=== PATIENT | female | born 1960 | race American Indian/Alaskan Native ===

== ENCOUNTER 2016-05-26 10:08 | Outpatient (CLI) | payer MEDICARE, OTHER ==
--- NOTE | 2016-05-26 11:27 | Mammography Report ---
Bilateral mammogram: No previous is available. CT study utilized. Findings: Predominance of adipose tissue bilaterally. Focal asymmetry upper inner left breast. No microcalcifications. Benign calcification. Benign axillary nodes. Impression: Focal asymmetry left breast. Comparison with previous studies is advised. If previous studies are not available spot mag and sonographic examination is recommended. BI-RADS CATEGORY: 0 = Needs additional imaging evaluation ACR BI-RADS MAMMOGRAPHIC CODES: 0 = Needs additional imaging evaluation; 1 = Negative; 2 = Benign; 3 = Probably benign; 4 = Suspicious; 5 = Malignant; 6 = Known biopsy-proven malignancy COMMENT: 1. Dense breast tissue, i.e., adenosis, fibrocystic changes, etc., may obscure an underlying neoplasm. 2. Approximately 10% of cancers are not detected with mammography. 3. A negative mammography report should not delay biopsy if a clinically suspicious mass is present. COMMENT: Patient follow-up letters are generated in [facility].
== END 2016-05-26 10:09 | disposition home or self-care (01) ==
LOC: MAMMO 10:08
PROVIDERS: ATTEND Internal Medicine
DX: Z12.31 Encounter for screening mammogram for malignant neoplasm of breast (principal)
CPT/HCPCS: 77067; G0202

== ENCOUNTER 2016-08-04 09:32 | Outpatient (CLI) | payer MEDICARE ==
--- NOTE | 2016-08-04 13:19 | Mammography Report ---
Spot compression compression and sonographic examination of circumscribed density left breast approximate 10:00 position: Findings: There is persistence of circumscribed density noted on spot magnification view in the margin appears circumscribed. No microcalcification. Sonographic examination there is no cystic or solid mass. Impression: Probably benign density. 6 month followup with mammogram and if necessary sonogram recommended. BI-RADS CATEGORY: 3 = Probably benign ACR BI-RADS MAMMOGRAPHIC CODES: 0 = Needs additional imaging evaluation; 1 = Negative; 2 = Benign; 3 = Probably benign; 4 = Suspicious; 5 = Malignant; 6 = Known biopsy-proven malignancy COMMENT: 1. Dense breast tissue, i.e., adenosis, fibrocystic changes, etc., may obscure an underlying neoplasm. 2. Approximately 10% of cancers are not detected with mammography. 3. A negative mammography report should not delay biopsy if a clinically suspicious mass is present. COMMENT: Patient follow-up letters are generated in [employer].
--- NOTE | 2016-08-05 12:12 | Vascular Lab Report ---
LOWER EXTREMITY ARTERIAL PHYSIOLOGIC STUDY: REASON FOR EXAM: Peripheral arterial disease. COMMENTS ON THE RIGHT: Ankle brachial index is 0.8. This value is decreased. Toe brachial index is not measured. Pulse volume recording at the level of the ankle is abnormal. Exercise testing was not done. COMMENTS ON THE LEFT: Ankle brachial index is 1.10. This value is normal. Toe brachial index is not measured. Pulse volume recording at the level of the ankle is normal. Exercise testing was not done. IMPRESSION: RIGHT: Mild peripheral vascular disease in the right lower extremity LEFT:No hemodynamically significant arterial disease.
--- NOTE | 2016-08-05 12:13 | Vascular Lab Report ---
LOWER EXTREMITY ARTERIAL DUPLEX: REASON FOR EXAM: Peripheral arterial disease. COMMENTS ON THE RIGHT: Biphasic waveforms are seen proximally. Triphasic waveforms are seen distally. No significant velocity gradients are identified. No focal significant plaque is identified. Findings are consistent with normal perfusion. Findings are consistent with the ability to heal distal wounds. COMMENTS ON THE LEFT: Biphasic waveforms are seen proximally. Triphasic waveforms are seen distally. No significant velocity gradients are identified. No focal significant plaque is identified. Findings are consistent with normal perfusion. Findings are consistent with the ability to heal distal wounds. IMPRESSION: RIGHT: Essentially normal arterial flow. LEFT:Essentially normal arterial flow.
--- NOTE | 2016-08-05 12:14 | Vascular Lab Report ---
UPPER EXTREMITY ARTERIAL DUPLEX: REASON FOR EXAM: Peripheral arterial disease. COMMENTS ON THE RIGHT: Triphasic waveforms are seen proximally. Triphasic waveforms are seen distally. No significant velocity gradients are identified. No significant plaque is identified. Findings are consistent with normal perfusion. COMMENTS ON THE LEFT: Triphasic waveforms are seen proximally. Triphasic waveforms are seen distally. No significant velocity gradients are identified. No significant plaque is identified. Findings are consistent with normal perfusion. IMPRESSION: RIGHT: Essentially normal arterial flow. LEFT:Essentially normal arterial flow.
== END 2016-08-04 09:33 | disposition home or self-care (01) ==
LOC: VAS 09:32
PROVIDERS: ATTEND Internal Medicine
DX: I73.9 Peripheral vascular disease, unspecified (principal); R92.2 Inconclusive mammogram
CPT/HCPCS: 76641; 93922; 93925; 93930; G0206

== ENCOUNTER 2019-02-19 11:41 | Emergency (ER) | payer MEDICARE ==
[2019-02-19] MEDS ORDERED: ASPIRIN 325 MG TAB PO ONE (11:59)
--- NOTE | 2019-02-19 12:53 | XRay Report ---
CHEST PA AND LATERAL VIEWS INDICATION: Chest Pain. COMPARISON: None. FINDINGS: Support devices: None. Heart: Within normal limits. Lungs/Pleura: No acute pulmonary or pleural findings. IMPRESSION: 1. No acute findings. Signer Name: Eligio Gonzalez MD Signed: 02/19/2019 12:49 PM Workstation Name: [id number]
[2019-02-19 13:36] LABS: Basophils # (Auto) 0.1 K/mm3 (0.0-0.1); Eosinophils # (Auto) 0.4 K/mm3 (0.0-0.4); Eosinophils % (Auto) 5.5 % (0.0-4.3); Hematocrit 41.4 % (30.3-42.9); Hemoglobin 13.7 gm/dl (10.1-14.3); Lymphocytes # (Auto) 2.3 K/mm3 (1.2-5.4); Lymphocytes % (Auto) 35.2 % (13.4-35.0); Mean Corpuscular HGB Conc 33 % (30-34); Mean Corpuscular Volume 90 fl (79-97); Monocytes # (Auto) 0.4 K/mm3 (0.0-0.8); Monocytes % (Auto) 5.5 % (0.0-7.3); Platelet Count 275 K/mm3 (140-440)
[2019-02-19 13:47] LABS: BUN/Creatinine Ratio 15; Blood Urea Nitrogen 9 mg/dL (7-17); Calcium 10.5 mg/dL (8.4-10.2); Hemolysis Index 11
[2019-02-19] MEDS ORDERED: methylPREDNISolone Sod Succinate 125 MG/2 ML INJ IM ONE (21:37)
[2019-02-19] MEDS ORDERED: IPRATROPIUM 0.02% NEBU 2.5 ML IH ONE (21:48)
[2019-02-19] MEDS ORDERED: ALBUTEROL 2.5 MG/3 ML NEBU IH ONE (21:48)
[2019-02-19] MEDS ORDERED: AZITHROMYCIN 250 MG TAB PO ONE (22:50)
[2019-02-20 00:38] VITALS: BP 181/80
--- NOTE | 2019-02-20 00:48 | Emergency Department Report ---
- General Chief Complaint: Dyspnea/Respdistress Stated Complaint: CHEST PAIN/SHAHRAM Time Seen by Provider: 02/19/19 22:12 Source: patient Mode of arrival: Ambulatory Limitations: No Limitations - History of Present Illness Initial Comments: Does not use home O2 MD Complaint: cough -: Gradual, days(s) (4) Severity: moderate Severity scale (0 -10): 4 Quality: aching (chest with coughing) Consistency: intermittent Improves With: other (Nebulizer reports was using her home nebulizer approximately every 1-2 hours at home) Worsens With: other (smoking cigarettes) Context: other (hx COPD feels like past COPD exacerbations) Associated Symptoms: cough (with green sputum no hemoptysis), chest pain (with coughing), shortness of breath, other (wheezing). denies: fever, chills, myalgias, diaphoresis, headache, rhinorrhea, nasal congestion, sore throat, stiff neck, abdominal pain, nausea, vomiting, diarrhea, dysuria, rash, confusion, right sweats, epistaxis, hoarseness, ear pain - Related Data Previous Rx's Medication Instructions Recorded Last Taken Type Ciprofloxacin HCl [Cipro] 500 mg PO BID #20 tablet 12/03/17 Unknown Rx Docusate Sodium [Colace] 100 mg PO BID PRN #20 capsule 12/03/17 Unknown Rx Ondansetron [Zofran Odt] 4 mg PO Q8HR PRN #20 tab.rapdis 12/03/17 Unknown Rx Tramadol HCl [Ultram] 50 mg PO Q6HR PRN #10 tablet 12/03/17 Unknown Rx metroNIDAZOLE [Flagyl] 500 mg PO Q12HR #20 tab 12/03/17 Unknown Rx Acetaminophen [Acetaminophen TAB] 500 mg PO Q6HR PRN #12 tablet 02/20/19 Unknown Rx Azithromycin [Zithromax Z-RACHEL] 250 mg PO DAILY #4 tablet 02/20/19 Unknown Rx Benzonatate [Tessalon Perles] 100 mg PO Q8HR PRN #12 capsule 02/20/19 Unknown Rx predniSONE [Deltasone] 50 mg PO QDAY #5 tab 02/20/19 Unknown Rx Allergies Allergy/AdvReac Type Severity Reaction Status Date / Time Penicillins Allergy Shortness Verified 02/19/19 19:48 of Breath ED Review of Systems ROS: Stated complaint: CHEST PAIN/SHAHRAM Other details as noted in HPI Other: GENERAL: No weight change, fatigue, fever, chills, or night sweats SKIN: No changes in skin or hair, no itching, no rashes, no jaundice HEAD: No trauma EYES: No blurriness, tearing, itching, acute visual loss, conjunctival discoloration, or scleral icterus EARS: No hearing loss, tinnitus, vertigo, or earache NOSE: No rhinorrhea, stuffiness, sneezing, itching, or epistaxis MOUTH: No bleeding gums, hoarseness, sore throat, or swelling CARDIAC: Chest pain. No new murmur,palpitations, dyspnea on exertion, orthopnea, PND, or edema RESPIRATORY: Shortness of breath, wheeze, cough, sputum production. Denies hemoptysis GI: No abdominal pain, nausea, vomiting, dysphagia, diarrhea, constipation, hematemesis, melena, hematochezia URINARY: No frequency, urgency, polyuria, dysuria, hematuria, or incontinence MUSCULOSKELETAL: No muscle weakness, joint stiffness, decrease in range of motion, redness, swelling NEUROLOGIC: No headache, syncope, loss of sensation, numbness, tingling, tremors, weakness, paralysis, seizures HEMATOLOGIC: No anemia, easy bruising, bleeding, petechiae, or purpura ENDOCRINE: No hot or cold intolerance, sweating, polyuria, polydipsia or, polyphagia no thyroid problems PSYCHIATRIC: No change in mood, no anxiety, no depression ED Past Medical Hx - Past Medical History Hx Diabetes: Yes Hx COPD: Yes Additional medical history: IBS, sleep apnea, hypothyroid. - Social History Smoking Status: Current Some Day Smoker Substance Use Type: None - Medications Home Medications: Home Medications Medication Instructions Recorded Confirmed Last Taken Type Ciprofloxacin HCl [Cipro] 500 mg PO BID #20 tablet 12/03/17 Unknown Rx Docusate Sodium [Colace] 100 mg PO BID PRN #20 capsule 12/03/17 Unknown Rx Ondansetron [Zofran Odt] 4 mg PO Q8HR PRN #20 tab.rapdis 12/03/17 Unknown Rx Tramadol HCl [Ultram] 50 mg PO Q6HR PRN #10 tablet 12/03/17 Unknown Rx metroNIDAZOLE [Flagyl] 500 mg PO Q12HR #20 tab 12/03/17 Unknown Rx Acetaminophen [Acetaminophen TAB] 500 mg PO Q6HR PRN #12 tablet 02/20/19 Unknown Rx Azithromycin [Zithromax Z-RACHEL] 250 mg PO DAILY #4 tablet 02/20/19 Unknown Rx Benzonatate [Tessalon Perles] 100 mg PO Q8HR PRN #12 capsule 02/20/19 Unknown Rx predniSONE [Deltasone] 50 mg PO QDAY #5 tab 02/20/19 Unknown Rx ED Physical Exam - General Limitations: No Limitations - Other Other exam information: GENERAL: Patient in no acute distress HEAD: Normocephalic, atraumatic EYES: PERRLA, EOM intact, no scleral icterus, no conjunctival hemorrhage, visual [place] and acuity wnl NOSE: No tenderness, discharge, sinus tenderness MOUTH: No erythema, bleeding, exudate HEART: Regular rate and rhythm, no murmur, S1-S2 are auscultated, no edema, pulses are symmetric LUNGS: No respiratory distress. Bilateral breath sounds, Mild tachypnea, No retractions, Bilateral wheezing. No rales, rhonchi ABDOMEN: Normal bowel sounds, abdomen soft, no tenderness, no rebound, no guarding, no distention, no masses, no CVA tenderness MUSCULOSKELETAL: Normal joint range of motion, no redness, no swelling, no tenderness NEUROLOGIC: GCS 15, Alert and Oriented x3, Cranial nerves intact, normal sensation, normal strength, no cerebellar deficit, NIHSS 0 SKIN: Skin is warm and dry, no wounds, no rashes ED Course Vital Signs 02/19/19 02/20/19 11:56 00:35 Temperature 98.2 F 97.6 F Pulse Rate 62 104 H Respiratory 20 18 Rate Blood Pressure 181/83 Blood Pressure 181/80 [Left] O2 Sat by Pulse 98 99 Oximetry ED Medical Decision Making - Lab Data Result diagrams: 02/19/19 13:13 02/19/19 13:13 Laboratory Results - last 24 hr 02/19/19 02/19/19 02/19/19 13:13 13:13 22:36 WBC 6.6 RBC 4.60 Hgb 13.7 Hct 41.4 MCV 90 MCH 30 MCHC 33 RDW 14.0 Plt Count 275 Lymph % (Auto) 35.2 H [place] % (Auto) 5.5 Eos % (Auto) 5.5 H Baso % (Auto) 1.0 Lymph # 2.3 [place] # 0.4 Eos # 0.4 Baso # 0.1 Seg Neutrophils % 52.8 Seg Neutrophils # 3.5 Sodium 139 Potassium 3.9 Chloride 104.0 Carbon Dioxide 20 L Anion Gap 19 BUN 9 Creatinine 0.6 L Estimated GFR > 60 BUN/Creatinine Ratio 15 Glucose 183 H Calcium 10.5 H Troponin T < 0.010 < 0.010 - Radiology Data Radiology results: report reviewed - Medical Decision Making Patient comfortable. Reports symptom improvement. Updated with results. ER nurse reports ambulatory O2 sat approximately 92-94% on RA. Plan discharge with outpatient follow up. Return if any worsening. Critical care attestation.: If time is entered above; I have spent that time in minutes in the direct care of this critically ill patient, excluding procedure time. ED Disposition Clinical Impression: COPD exacerbation, Bronchitis Disposition: TO HOME OR SELFCARE Is pt being admited?: No Condition: Stable Instructions: Chronic Obstructive Pulmonary Disease (ED), Acute Bronchitis (ED) Prescriptions: Acetaminophen [Acetaminophen TAB] 500 mg PO Q6HR PRN #12 tablet PRN Reason: Pain predniSONE [Deltasone] 50 mg PO QDAY #5 tab Benzonatate [Tessalon Perles] 100 mg PO Q8HR PRN #12 capsule PRN Reason: Cough Azithromycin [Zithromax Z-RACHEL] 250 mg PO DAILY #4 tablet Referrals: ARUNA ANDERSON MD [Primary Care Provider] - 2-3 Days
[2019-02-20] MEDS ORDERED: AZITHROMYCIN 250 MG TAB ONE (01:04)
== END 2019-02-20 01:05 | disposition home or self-care (01) ==
LOC: ED 11:41
DX: J44.1 Chronic obstructive pulmonary disease with (acute) exacerbation (principal); J40 Bronchitis, not specified as acute or chronic
CPT/HCPCS: 36415; 71046; 80048; 84484; 85025; 93005; 93010; 94640; 96372; 99284; J2930

== ENCOUNTER 2019-05-08 08:25 | Emergency (ER) | payer MEDICARE ==
--- NOTE | 2019-05-08 08:54 | Emergency Department Report ---
HPI - General Time Seen by Provider: 05/08/19 08:43 - HPI HPI: 59-year-old -[place] female presents to the emergency department from home via EMS with complaint of a one-week history of shortness of breath, wheezing, and a mixed dry and productive cough. Patient has a past medical history of COPD, diabetes, hypertension, SVT. She has been using her home albuterol inhaler and nebulizer treatments without much relief. Her primary care physician is Dr. Noah Mercado but she has not seen them regarding her current symptoms. She is scheduled to see a ceramic tile mechanic tomorrow, Dr. Manish Bentley, for the first time. No recent travel or sick contacts at home. She denies any fever, chills, chest pain, lower extremity swelling. She is a former smoker having quit in January of last year. ED Past Medical Hx - Past Medical History Hx Diabetes: Yes Hx Asthma: No Hx COPD: Yes Hx HIV: No Additional medical history: IBS, sleep apnea, hypothyroid. - Social History Smoking Status: Former Smoker - Medications Home Medications: Home Medications Medication Instructions Recorded Confirmed Last Taken Type Docusate Sodium [Colace CAP] 100 mg PO BID PRN #20 capsule 12/03/17 04/01/19 Unknown Rx Tramadol HCl [Ultram] 50 mg PO Q6HR PRN #10 tablet 12/03/17 04/01/19 Unknown Rx Acetaminophen/Codeine 300 mg PO Q6HR PRN 04/04/19 04/04/19 Unknown History Aspirin 81 mg PO DAILY 04/04/19 04/04/19 Unknown History Aspirin EC [Halfprin EC] 81 mg PO QDAY #30 tablet. 04/04/19 Unknown Rx Benzonatate 100 mg PO Q8HR PRN 04/04/19 04/04/19 Unknown History Insulin Glargine [Lantus VIAL] 25 units SUB-Q QHS #1 vial 04/04/19 Unknown Rx Levothyroxine 100 mcg PO DAILY 04/04/19 04/04/19 Unknown History Losartan [Cozaar] 50 mg PO QDAY #30 tablet 04/04/19 Unknown Rx Simvastatin 40 mg PO QHS #30 tablet 04/04/19 Unknown Rx dilTIAZem CD [Cardizem Cd] 180 mg PO QDAY #30 cap 04/04/19 Unknown Rx metFORMIN 500 mg PO DAILY 04/04/19 04/04/19 Unknown History ALBUTEROL NEB's [Proventil 0.083% 2.5 mg IH QID PRN #1 box 05/08/19 Unknown Rx NEBS] Albuterol INH(or & Nicu Only) 2 puff IH QID PRN #8.5 gram 05/08/19 Unknown Rx [ProAir HFA Inhaler] Prednisone [predniSONE 5 mg (6-Day 5 mg PO .TAPER #1 tab.ds.pk 05/08/19 Unknown Rx Pack, 21 Tabs)] ED Review of Systems ROS: Stated complaint: SHAHRAM Other details as noted in HPI Comment: All other systems reviewed and negative Constitutional: denies: chills, fever Eyes: denies: eye pain, vision change ENT: denies: ear pain, throat pain Respiratory: cough, shortness of breath, wheezing Cardiovascular: denies: chest pain, palpitations, edema Gastrointestinal: denies: abdominal pain, vomiting Genitourinary: denies: dysuria, discharge Musculoskeletal: denies: back pain, arthralgia Skin: denies: rash, lesions Neurological: denies: headache, weakness Physical Exam - Physical Exam Physical Exam: GENERAL: The patient is well-developed well-nourished. HENT: Normocephalic. Atraumatic. Patient has moist mucous membranes. EYES: Extraocular motions are intact. NECK: Supple. Trachea is midline. CHEST/LUNGS: Moderate wheezing throughout the chest. There is tachypnea but no accessory muscle use. There is no respiratory distress noted. HEART/CARDIOVASCULAR: Regular. There is no tachycardia. ABDOMEN: Abdomen is soft, nontender. Patient has normal bowel sounds. There is no abdominal distention. SKIN: Skin is warm and dry. NEURO: The patient is awake, alert, and oriented. The patient is cooperative. The patient has no focal neurologic deficits. Normal speech. MUSCULOSKELETAL: There is no tenderness or deformity. There is no evidence of acute injury. ED Medical Decision Making - Lab Data Result diagrams: 05/08/19 09:37 05/08/19 09:37 - EKG Data -: EKG Interpreted by Me EKG shows normal: sinus rhythm, axis, intervals, QRS complexes, ST-T waves Rate: normal - EKG Data When compared to previous EKG there are: no significant change Interpretation: normal EKG, unchanged when compared t (03/31/19) - Radiology Data Radiology results: report reviewed CTA CHEST WITH CONTRAST INDICATION : P.E. PROTOCOL!!! S.O.B., elevated D-dimer Omnipaque 350 / 100ml's was used for this exam.. TECHNIQUE: Axial imaging performed through the chest, with contrast bolus timing set to maximize opacification of the pulmonary arteries. 3-plane MIP reformatted images were obtained. All CT scans at this location are performed using CT dose reduction for ALARA by means of automated exposure control. 100 mL of intravenous contrast administered. Consent was obtained prior to the administration of contrast. COMPARISON: 03/31/2019 FINDINGS: Bolus: Contrast bolus timing is adequate. PTE: No filling defect is present to suggest PTE. Mediastinum: Heart and great vessels appear normal. No pathologic mediastinal adenopathy. Lungs: Lungs are clear. Upper abdomen: Limited imaging of the upper abdomen shows nothing acute. Bones: Degenerative changes in the spine with nothing acute. IMPRESSION: Negative for PTE. Clear lungs. - Medical Decision Making This patient presents to the emergency department with a one-week history of some shortness of breath, wheezing and mixed dry and productive cough. On examination she does have moderate bronchospasm but does not appear in any respiratory distress. Vital signs were stable throughout her ED course including being afebrile and there was no hypoxia. Chest x-ray did not show any pneumonia, pleural effusions, or any other acute process. Patient's labs are mostly unremarkable except for a elevated and equivocal d-dimer level. For this reason CT angiography of the chest was done that was negative for PE or any other acute process. The patient had received Solu-Medrol and breathing treat ments and upon reevaluation her symptoms have greatly improved and essentially the bronchospasm has resolved. The patient has an appointment with a ceramic tile mechanic tomorrow that she has been instructed to keep. She is also been instructed to follow-up with her PCP. She will return to the ER with any worsening of her symptoms or any acute distress. - Differential Diagnosis Asthma, bronchitis, pneumonia, PE Critical Care Time: No Critical care attestation.: If time is entered above; I have spent that time in minutes in the direct care of this critically ill patient, excluding procedure time. ED Disposition Clinical Impression: COPD exacerbation, Bronchospasm Disposition: TO HOME OR SELFCARE Is pt being admited?: No Condition: Stable Instructions: Chronic Obstructive Pulmonary Disease (ED), Bronchospasm (ED) Additional Instructions: Please follow-up with your ceramic tile mechanic tomorrow as previously scheduled. Return to the emergency department with any worsening of your symptoms or any acute distress. Prescriptions: Prednisone [predniSONE 5 mg (6-Day Pack, 21 Tabs)] 5 mg PO .TAPER #1 tab.ds.pk Albuterol INH(or & Nicu Only) [ProAir HFA Inhaler] 2 puff IH QID PRN #8.5 gram PRN Reason: Shortness Of Breath ALBUTEROL NEB's [Proventil 0.083% NEBS] 2.5 mg IH QID PRN #1 box PRN Reason: Wheezing Referrals: KINGA VILLASENOR MD [Staff Physician] - 05/09/19 Time of Disposition: 14:49
[2019-05-08] MEDS ORDERED: ALBUTEROL 2.5 MG/3 ML NEBU IH ONE (09:37)
[2019-05-08] MEDS ORDERED: methylPREDNISolone Sod Succinate 125 MG/2 ML INJ IV ONE (09:37)
[2019-05-08] MEDS ORDERED: IPRATROPIUM 0.02% NEBU 2.5 ML IH ONE (09:37)
--- NOTE | 2019-05-08 09:56 | XRay Report ---
CHEST 1 VIEW INDICATION: SOB, Cough. COMPARISON: 03/31/2019 FINDINGS: Support devices: None. Heart: Within normal limits. Lungs/Pleura: No acute air space or interstitial disease. Additional findings: None. IMPRESSION: 1. No acute findings. Signer Name: Rex Wang MD Signed: 05/08/2019 9:52 AM Workstation Name: [id number]
[2019-05-08 10:00] LABS: Basophils % (Auto) 0.8 % (0.0-1.8); Eosinophils # (Auto) 0.3 K/mm3 (0.0-0.4); Eosinophils % (Auto) 4.9 % (0.0-4.3); Hematocrit 36.3 % (30.3-42.9); Hemoglobin 12.4 gm/dl (10.1-14.3); Lymphocytes # (Auto) 1.4 K/mm3 (1.2-5.4); Lymphocytes % (Auto) 23.7 % (13.4-35.0); Mean Corpuscular HGB Conc 34 % (30-34); Mean Corpuscular Volume 90 fl (79-97); Monocytes # (Auto) 0.2 K/mm3 (0.0-0.8); Monocytes % (Auto) 3.6 % (0.0-7.3); Platelet Count 259 K/mm3 (140-440); Red Blood Count 4.04 M/mm3 (3.65-5.03); Red Cell Distribution Width 14.1 % (13.2-15.2)
[2019-05-08 10:23] LABS: INR 0.88 (0.87-1.13)
[2019-05-08 10:40] LABS: BUN/Creatinine Ratio 18; Blood Urea Nitrogen 11 mg/dL (7-17); Calcium 10.7 mg/dL (8.4-10.2); Hemolysis Index 13
--- NOTE | 2019-05-08 15:23 | Cat Scan Report ---
CTA CHEST WITH CONTRAST INDICATION : P.E. PROTOCOL!!! S.O.B., elevated D-dimer Omnipaque 350 / 100ml's was used for this exa m.. TECHNIQUE: Axial imaging performed through the chest, with contrast bolus timing set to maximize opa cification of the pulmonary arteries. 3-plane MIP reformatted images were obtained. All CT scans at this location are performed using CT dose reduction for ALARA by means of automated exposure control. 100 mL of intravenous contrast administered. Consent was obtained prior to the administration of cont rast. COMPARISON: 03/31/2019 FINDINGS: Bolus: Contrast bolus timing is adequate. PTE: No filling defect is present to suggest PTE. Mediastinum: Heart and great vessels appear normal. No pathologic mediastinal adenopathy. Lungs: Lungs are clear. Upper abdomen: Limited imaging of the upper abdomen shows nothing acute. Bones: Degenerative changes in the spine with nothing acute. IMPRESSION: Negative for PTE. Clear lungs. Signer Name: Alberto Mclaughlin MD Signed: 05/08/2019 3:18 PM Workstation Name: [id number]
[2019-05-08 15:25] VITALS: BP 147/65
== END 2019-05-08 16:42 | disposition home or self-care (01) ==
LOC: ED 08:25
DX: J44.1 Chronic obstructive pulmonary disease with (acute) exacerbation (principal); J98.01 Acute bronchospasm; E11.9 Type 2 diabetes mellitus without complications; Z87.891 Personal history of nicotine dependence; Z79.899 Other long term (current) drug therapy; Z88.0 Allergy status to penicillin
CPT/HCPCS: 36415; 71045; 71275; 80048; 84484; 85025; 85379; 85610; 93005; 93010; 94640; 96374; 99285; J2930; Q9967; 94644

== ENCOUNTER 2019-06-01 12:46 | Emergency (ER) | payer MEDICARE ==
[2019-06-01] MEDS ORDERED: ALBUTEROL 2.5 MG/3 ML NEBU IH ONE (13:04)
[2019-06-01] MEDS ORDERED: methylPREDNISolone Sod Succinate 125 MG/2 ML INJ IV ONE (13:04)
[2019-06-01] MEDS ORDERED: IPRATROPIUM 0.02% NEBU 2.5 ML IH ONE (13:04)
[2019-06-01] MEDS ORDERED: SODIUM CHLORIDE 0.9% 1000 ML 1,000 ML IV ONE (13:04)
[2019-06-01] MEDS ORDERED: SODIUM CHLORIDE 0.9% 500 ML 500 ML IV ONE (13:04)
--- NOTE | 2019-06-01 13:07 | Emergency Department Report ---
HPI - General Chief Complaint: Dyspnea/Respdistress Time Seen by Provider: 06/01/19 12:59 - HPI HPI: 59-year-old -[place] female presents to the emergency department with complaint of 1 to 2 days of shortness of breath and wheezing. She denies any fever, chest pain, coughing, headache, lower extremity swelling, body aches, diarrhea. She has a history of COPD but is not oxygen dependent, as well as a history of hypertension and diabetes. The patient recently saw Dr. Wahl to establish care with a hand scraper and has a virtual appointment tomorrow with them as well. No recent travel or sick contacts at home. She has been using her albuterol inhaler and nebulizer treatment without much relief. Denies any tobacco or illicit drug use. ED Past Medical Hx - Past Medical History Previous Medical History?: Yes Hx Diabetes: Yes Hx Asthma: No Hx COPD: Yes Hx HIV: No Additional medical history: IBS, sleep apnea, hypothyroid. - Social History Smoking Status: Former Smoker - Medications Home Medications: Home Medications Medication Instructions Recorded Confirmed Last Taken Type Docusate Sodium [Colace CAP] 100 mg PO BID PRN #20 capsule 12/03/17 04/01/19 Unknown Rx Tramadol HCl [Ultram] 50 mg PO Q6HR PRN #10 tablet 12/03/17 04/01/19 Unknown Rx Acetaminophen/Codeine 300 mg PO Q6HR PRN 04/04/19 04/04/19 Unknown History Aspirin 81 mg PO DAILY 04/04/19 04/04/19 Unknown History Aspirin EC [Halfprin EC] 81 mg PO QDAY #30 tablet. 04/04/19 Unknown Rx Benzonatate 100 mg PO Q8HR PRN 04/04/19 04/04/19 Unknown History Insulin Glargine [Lantus VIAL] 25 units SUB-Q QHS #1 vial 04/04/19 Unknown Rx Levothyroxine 100 mcg PO DAILY 04/04/19 04/04/19 Unknown History Losartan [Cozaar] 50 mg PO QDAY #30 tablet 04/04/19 Unknown Rx Simvastatin 40 mg PO QHS #30 tablet 04/04/19 Unknown Rx dilTIAZem CD [Cardizem Cd] 180 mg PO QDAY #30 cap 04/04/19 Unknown Rx metFORMIN 500 mg PO DAILY 04/04/19 04/04/19 Unknown History ALBUTEROL NEB's [Proventil 0.083% 2.5 mg IH QID PRN #1 box 05/08/19 Unknown Rx NEBS] Albuterol INH(or & Nicu Only) 2 puff IH QID PRN #8.5 gram 06/01/19 Unknown Rx [ProAir HFA Inhaler] Prednisone [predniSONE 5 mg (6-Day 5 mg PO .TAPER #1 tab.ds.pk 06/01/19 Unknown Rx Pack, 21 Tabs)] ED Review of Systems ROS: Stated complaint: COPD/SOB Other details as noted in HPI Comment: All other systems reviewed and negative Constitutional: denies: chills, fever Eyes: denies: eye pain, vision change ENT: denies: ear pain, throat pain Respiratory: shortness of breath, wheezing Cardiovascular: denies: chest pain, palpitations, edema Gastrointestinal: denies: abdominal pain, vomiting Genitourinary: denies: dysuria, discharge Musculoskeletal: denies: back pain, arthralgia Skin: denies: rash, lesions Neurological: denies: headache, weakness Physical Exam - Physical Exam Vital Signs: Vital Signs 06/01/19 12:49 Temperature 97.5 F L Pulse Rate 108 H Respiratory 24 Rate Blood Pressure 183/81 O2 Sat by Pulse 98 Oximetry Physical Exam: GENERAL: The patient is well-developed well-nourished. HENT: Normocephalic. Atraumatic. Patient has moist mucous membranes. EYES: Extraocular motions are intact. NECK: Supple. Trachea is midline. CHEST/LUNGS: Mild to moderate wheezing throughout the chest. A dry cough heard intermittently during examination. No tachypnea or accessory muscle use. There is no respiratory distress noted. HEART/CARDIOVASCULAR: Regular. There is no tachycardia. ABDOMEN: Abdomen is soft, nontender. Patient has normal bowel sounds. There is no abdominal distention. SKIN: Skin is warm and dry. NEURO: The patient is awake, alert, and oriented. The patient is cooperative. The patient has no focal neurologic deficits. Normal speech. MUSCULOSKELETAL: There is no tenderness or deformity. There is no evidence of acute injury. ED Course Vital Signs 06/01/19 12:49 Temperature 97.5 F L Pulse Rate 108 H Respiratory 24 Rate Blood Pressure 183/81 O2 Sat by Pulse 98 Oximetry ED Medical Decision Making - Lab Data Result diagrams: 06/01/19 13:12 06/01/19 13:12 - EKG Data -: EKG Interpreted by Me EKG shows normal: sinus rhythm, axis, intervals, QRS complexes, ST-T waves Rate: normal - EKG Data When compared to previous EKG there are: no significant change Interpretation: unchanged when compared t (05/08/19) - Radiology Data Radiology results: image reviewed interpreted by me: Chest x-ray does not show any acute process. There are no pleural effusions, obvious pneumonia and there is no pneumothorax. - Medical Decision Making This patient presents to the emergency department with a complaint of a few days of some shortness of breath and wheezing. On examination she has some mild to moderate wheezing but no signs of any respiratory or acute distress. Chest x- ray does not show any pneumonia, pleural effusions, or any other acute process. The patient's labs are mostly unremarkable except for a blood sugar of about 400. She was given IV fluid resuscitation and a dose of insulin, for the hyperglycemia, and her repeat blood sugar came down to about 230. For her wheezing/bronchospasm, the patient was given Solu-Medrol and a continuous breathing treatment. Upon reevaluation her symptoms have greatly improved. Her vital signs been stable throughout her ED course including being afebrile and no hypoxia. She appears safe for discharge home at this time. She has an appointment with her hand scraper tomorrow. She will be placed on some steroids and given a refill of her albuterol inhaler. She will return to the ER with any worsening of her symptoms or any acute distress. Critical Care Time: No Critical care attestation.: If time is entered above; I have spent that time in minutes in the direct care of this critically ill patient, excluding procedure time. ED Disposition Clinical Impression: COPD exacerbation, Hyperglycemia Disposition: DC-01 TO HOME OR SELFCARE Is pt being admited?: No Condition: Stable Instructions: Chronic Obstructive Pulmonary Disease (ED) Additional Instructions: Please follow-up with your primary care physician and hand scraper in the next few days. Return to the emergency department with any worsening of your symptoms or any acute distress. Please take your diabetes pills and insulin as prescribed. Try and stay away from foods that are high in sugar, carbohydrates and starches. Keep a blood sugar log. Prescriptions: Prednisone [predniSONE 5 mg (6-Day Pack, 21 Tabs)] 5 mg PO .TAPER #1 tab.ds.pk Albuterol INH(or & Nicu Only) [ProAir HFA Inhaler] 2 puff IH QID PRN #8.5 gram PRN Reason: Shortness Of Breath Referrals: PRIMARY CARE, [Primary Care Provider] - 2-3 Days KINGA VILLASENOR MD [Staff Physician] - 2-3 Days Time of Disposition: 15:46
[2019-06-01 13:32] LABS: Basophils % (Auto) 0.5 % (0.0-1.8); Eosinophils # (Auto) 0.3 K/mm3 (0.0-0.4); Eosinophils % (Auto) 4.3 % (0.0-4.3); Hematocrit 39.4 % (30.3-42.9); Hemoglobin 13.3 gm/dl (10.1-14.3); Lymphocytes # (Auto) 1.5 K/mm3 (1.2-5.4); Lymphocytes % (Auto) 23.3 % (13.4-35.0); Mean Corpuscular HGB Conc 34 % (30-34); Mean Corpuscular Volume 91 fl (79-97); Monocytes # (Auto) 0.3 K/mm3 (0.0-0.8); Monocytes % (Auto) 4.1 % (0.0-7.3); Red Blood Count 4.34 M/mm3 (3.65-5.03)
--- NOTE | 2019-06-01 13:50 | XRay Report ---
CHEST 2 VIEWS INDICATION / CLINICAL INFORMATION: Shortness of breath for one week. History of COPD, hypertension and diabetes. COMPARISON: One view of the chest from 05/08/2019. FINDINGS: SUPPORT DEVICES: None. HEART / MEDIASTINUM: No significant abnormality. LUNGS / PLEURA: No significant pulmonary or pleural abnormality. No pneumothorax. ADDITIONAL FINDINGS: No significant additional findings. IMPRESSION: 1. No acute abnormality of the chest. Signer Name: Murali Robison MD Signed: 06/01/2019 1:46 PM Workstation Name: [id number]
[2019-06-01 13:54] LABS: BUN/Creatinine Ratio 15; Blood Urea Nitrogen 9 mg/dL (7-17); Calcium 10.5 mg/dL (8.4-10.2); Hemolysis Index 90; INR 0.89 (0.87-1.13)
[2019-06-01 14:07] VITALS: BP 124/61
[2019-06-01] MEDS ORDERED: INSULIN REGULAR, HUMAN 100 UNITS/1 ML IV ONE (14:10)
[2019-06-01 14:16] LABS: Platelet Count 242 K/mm3 (140-440)
== END 2019-06-01 16:24 | disposition home or self-care (01) ==
LOC: ED 12:46
DX: J44.9 Chronic obstructive pulmonary disease, unspecified (principal); E11.65 Type 2 diabetes mellitus with hyperglycemia; E03.9 Hypothyroidism, unspecified; G47.30 Sleep apnea, unspecified; Z87.891 Personal history of nicotine dependence; Z79.4 Long term (current) use of insulin; Z79.899 Other long term (current) drug therapy; Z88.0 Allergy status to penicillin
CPT/HCPCS: 36415; 71046; 80048; 82962; 84484; 85025; 85610; 93005; 93010; 94640; 96361; 96374; 96375; 99284; J2930; J7030; J7040; J1815

== ENCOUNTER 2019-06-04 08:51 | Emergency (ER) | payer MEDICARE ==
--- NOTE | 2019-06-04 10:16 | Emergency Department Report ---
ED Shortness of Breath HPI - General Chief Complaint: Dyspnea/Respdistress Stated Complaint: SHAHRAM Time Seen by Provider: 06/04/19 09:01 Source: patient Mode of arrival: Stretcher Limitations: No Limitations - History of Present Illness Initial Comments: Mrs. Jarvis is a 59-year-old female with history of insulin-dependent diabetes, COPD, tobacco abuse IBS, sleep apnea, hypothyroidism who presents with shortness of breath productive cough. She stopped smoking in January. However admittedly she did smoke cigarettes over the weekend. She came by EMS. She received 125 mg of Solu-Medrol. She is currently on BiPAP. She denies fever. She denies headache. Denies chest pain. PCP Dr. Noah Mercado MD Complaint: shortness of breath, cough -: Gradual, days(s) (2) Severity: moderate Consistency: constant Improves With: other (BiPAP) Worsens With: exertion Known History Of: COPD Context: allergen exposure (She ran errands recently, to the pharmacy [employer] [place]) Associated Symptoms: denies other symptoms - Related Data Home Medications Medication Instructions Recorded Confirmed Last Taken Acetaminophen/Codeine 300 mg PO Q6HR PRN 04/04/19 04/04/19 Unknown Aspirin 81 mg PO DAILY 04/04/19 04/04/19 Unknown Benzonatate 100 mg PO Q8HR PRN 04/04/19 04/04/19 Unknown Levothyroxine 100 mcg PO DAILY 04/04/19 04/04/19 Unknown metFORMIN 500 mg PO DAILY 04/04/19 04/04/19 Unknown Previous Rx's Medication Instructions Recorded Last Taken Type Docusate Sodium [Colace CAP] 100 mg PO BID PRN #20 capsule 12/03/17 Unknown Rx Tramadol HCl [Ultram] 50 mg PO Q6HR PRN #10 tablet 12/03/17 Unknown Rx Aspirin EC [Halfprin EC] 81 mg PO QDAY #30 tablet. 04/04/19 Unknown Rx Insulin Glargine [Lantus VIAL] 25 units SUB-Q QHS #1 vial 04/04/19 Unknown Rx Losartan [Cozaar] 50 mg PO QDAY #30 tablet 04/04/19 Unknown Rx Simvastatin 40 mg PO QHS #30 tablet 04/04/19 Unknown Rx dilTIAZem CD [Cardizem Cd] 180 mg PO QDAY #30 cap 04/04/19 Unknown Rx ALBUTEROL NEB's [Proventil 0.083% 2.5 mg IH QID PRN #1 box 05/08/19 Unknown Rx NEBS] Albuterol INH(or & Nicu Only) 2 puff IH QID PRN #8.5 gram 06/01/19 Unknown Rx [ProAir HFA Inhaler] Prednisone [predniSONE 5 mg (6-Day 5 mg PO .TAPER #1 tab.ds.pk 06/01/19 Unknown Rx Pack, 21 Tabs)] Doxycycline Hyclate [Doxycycline 100 mg PO Q12HR 7 Days #14 tab 06/04/19 Unknown Rx Hyclate TAB] Prednisone [predniSONE 10 mg 10 mg PO .TAPER #1 tab.ds.pk 06/04/19 Unknown Rx (6-Day Pack, 21 Tabs)] Allergies Allergy/AdvReac Type Severity Reaction Status Date / Time Penicillins Allergy Shortness Verified 02/19/19 19:48 of Breath ED Review of Systems ROS: Stated complaint: SHAHRAM Other details as noted in HPI Comment: All other systems reviewed and negative Constitutional: denies: fever, malaise Respiratory: cough, shortness of breath Cardiovascular: denies: chest pain Gastrointestinal: denies: abdominal pain ED Past Medical Hx - Past Medical History Previous Medical History?: Yes Hx Diabetes: Yes Hx Asthma: No Hx COPD: Yes Hx HIV: No Additional medical history: IBS, sleep apnea, hypothyroid. - Surgical History Past Surgical History?: No - Social History Smoking Status: Former Smoker Substance Use Type: None - Medications Home Medications: Home Medications Medication Instructions Recorded Confirmed Last Taken Type Docusate Sodium [Colace CAP] 100 mg PO BID PRN #20 capsule 12/03/17 04/01/19 Unknown Rx Tramadol HCl [Ultram] 50 mg PO Q6HR PRN #10 tablet 12/03/17 04/01/19 Unknown Rx Acetaminophen/Codeine 300 mg PO Q6HR PRN 04/04/19 04/04/19 Unknown History Aspirin 81 mg PO DAILY 04/04/19 04/04/19 Unknown History Aspirin EC [Halfprin EC] 81 mg PO QDAY #30 tablet. 04/04/19 Unknown Rx Benzonatate 100 mg PO Q8HR PRN 04/04/19 04/04/19 Unknown History Insulin Glargine [Lantus VIAL] 25 units SUB-Q QHS #1 vial 04/04/19 Unknown Rx Levothyroxine 100 mcg PO DAILY 04/04/19 04/04/19 Unknown History Losartan [Cozaar] 50 mg PO QDAY #30 tablet 04/04/19 Unknown Rx Simvastatin 40 mg PO QHS #30 tablet 04/04/19 Unknown Rx dilTIAZem CD [Cardizem Cd] 180 mg PO QDAY #30 cap 04/04/19 Unknown Rx metFORMIN 500 mg PO DAILY 04/04/19 04/04/19 Unknown History ALBUTEROL NEB's [Proventil 0.083% 2.5 mg IH QID PRN #1 box 05/08/19 Unknown Rx NEBS] Albuterol INH(or & Nicu Only) 2 puff IH QID PRN #8.5 gram 06/01/19 Unknown Rx [ProAir HFA Inhaler] Prednisone [predniSONE 5 mg (6-Day 5 mg PO .TAPER #1 tab.ds.pk 06/01/19 Unknown Rx Pack, 21 Tabs)] Doxycycline Hyclate [Doxycycline 100 mg PO Q12HR 7 Days #14 tab 06/04/19 Unknown Rx Hyclate TAB] Prednisone [predniSONE 10 mg 10 mg PO .TAPER #1 tab.ds.pk 06/04/19 Unknown Rx (6-Day Pack, 21 Tabs)] ED Physical Exam - General Limitations: No Limitations General appearance: alert, in no apparent distress, other (Speaking full word sentences with BiPAP in place appears very comfortable) - Head Head exam: Present: atraumatic, normocephalic - Eye Eye exam: Present: normal appearance - ENT ENT exam: Present: mucous membranes moist - Neck Neck exam: Present: normal inspection, full ROM - Respiratory Respiratory exam: Present: wheezes, prolonged expiratory. Absent: respiratory distress, rales, accessory muscle use - Cardiovascular Cardiovascular Exam: Present: regular rate, normal rhythm, normal heart sounds. Absent: systolic murmur, diastolic murmur, rubs, gallop - GI/Abdominal GI/Abdominal exam: Present: soft, normal bowel sounds. Absent: distended, tenderness, guarding, rebound - Extremities Exam Extremities exam: Present: normal inspection - Neurological Exam Neurological exam: Present: alert, oriented X3 - Psychiatric Psychiatric exam: Present: normal affect, normal mood - Skin Skin exam: Present: warm, dry, intact, normal color. Absent: rash ED Course Vital Signs 06/04/19 06/04/19 06/04/19 08:58 09:00 11:29 Temperature 98.6 F Pulse Rate 98 H 100 H 87 Pulse Rate [ Anterior Bilateral Throughout] Respiratory 20 27 H 16 Rate Respiratory Rate [Anterior Bilateral Throughout] Blood Pressure 128/89 122/86 Blood Pressure 119/83 [Left] O2 Sat by Pulse 98 100 97 Oximetry 06/04/19 06/04/19 13:10 14:05 Temperature Pulse Rate 105 H Pulse Rate [ 99 H Anterior Bilateral Throughout] Respiratory 16 Rate Respiratory 20 Rate [Anterior Bilateral Throughout] Blood Pressure Blood Pressure 116/73 [Left] O2 Sat by Pulse 95 Oximetry ED Medical Decision Making - EKG Data -: EKG Interpreted by Me EKG shows normal: sinus rhythm, axis, intervals, QRS complexes, ST-T waves Rate: normal - EKG Data 06/04/19 10:20 EKG obtained 0903 Normal sinus rhythm rate 95 bpm normal axis normal intervals enlarged P waves no ST elevation nonischemic T wave pattern - Radiology Data Radiology results: report reviewed Chest radiograph: No evidence of acute cardiopulmonary process according to radiology impression - Medical Decision Making Acute COPD exacerbation, patient has clear breath sounds after treatment in the emergency department. Repeat pulse oximetry 97% on room air. Prescribed predn isone doxycycline. I and respiratory therapist strongly encouraged Mrs. Jarvis to self isolate self quarantine. She now understands the risk of severe infection considering our current pandemic Critical care attestation.: If time is entered above; I have spent that time in minutes in the direct care of this critically ill patient, excluding procedure time. ED Disposition Clinical Impression: COPD with acute exacerbation Disposition: DC-01 TO HOME OR SELFCARE Is pt being admited?: No Does the pt Need Aspirin: No Condition: Stable Instructions: Chronic Obstructive Pulmonary Disease (ED) Prescriptions: Doxycycline Hyclate [Doxycycline Hyclate TAB] 100 mg PO Q12HR 7 Days #14 tab Prednisone [predniSONE 10 mg (6-Day Pack, 21 Tabs)] 10 mg PO .TAPER #1 tab.pk
[2019-06-04] MEDS ORDERED: DOXYCYCLINE 100 MG TAB PO ONE (10:19)
--- NOTE | 2019-06-04 10:53 | XRay Report ---
CHEST 1 VIEW, 06/04/2019 10:13 AM CLINICAL INFORMATION/INDICATION: Shortness of breath COMPARISON: Chest radiograph, 06/01/2019 FINDINGS: SUPPORT DEVICES: None. HEART: The cardiac silhouette is normal in size. LUNGS/PLEURA: The lungs are clear of focal airspace disease or significant pleural effusion ADDITIONAL FINDINGS: No additional acute findings. IMPRESSION: 1. No evidence of acute cardiopulmonary process. Signer Name: Dasha Phoenix MD Signed: 06/04/2019 10:49 AM Workstation Name: [id number]
[2019-06-04] MEDS ORDERED: IPRATROPIUM 0.02% NEBU 2.5 ML IH ONE (12:34)
[2019-06-04] MEDS ORDERED: ALBUTEROL 2.5 MG/3 ML NEBU IH ONE (12:34)
[2019-06-04 14:06] VITALS: BP 116/73
== END 2019-06-04 14:58 | disposition home or self-care (01) ==
LOC: ED 08:51
DX: J44.1 Chronic obstructive pulmonary disease with (acute) exacerbation (principal); E11.9 Type 2 diabetes mellitus without complications; E03.9 Hypothyroidism, unspecified; Z87.891 Personal history of nicotine dependence; Z88.0 Allergy status to penicillin
CPT/HCPCS: 71045; 93005; 93010; 94640; 94644

== ENCOUNTER 2019-07-04 18:27 | Emergency (ER) | payer MEDICARE ==
[2019-07-04] MEDS ORDERED: methylPREDNISolone Sod Succinate 125 MG/2 ML INJ IV ONE (20:14)
[2019-07-04] MEDS ORDERED: IPRATROPIUM 0.02% NEBU 2.5 ML IH ONE (20:15)
[2019-07-04] MEDS ORDERED: ALBUTEROL 2.5 MG/3 ML NEBU IH ONE (20:15)
--- NOTE | 2019-07-04 20:19 | XRay Report ---
CHEST 2 VIEWS INDICATION / CLINICAL INFORMATION: Shortness of breath. COMPARISON: Chest x-ray on 06/04/2019 FINDINGS: SUPPORT DEVICES: None. HEART / MEDIASTINUM: No significant abnormality. LUNGS / PLEURA: No significant pulmonary or pleural abnormality. No pneumothorax. ADDITIONAL FINDINGS: No significant additional findings. IMPRESSION: 1. No acute findings. Signer Name: Juan Gandhi MD Signed: 07/04/2019 8:14 PM Workstation Name: [id number]
--- NOTE | 2019-07-04 20:25 | Emergency Department Report ---
HPI - General Chief Complaint: Dyspnea/Respdistress Time Seen by Provider: 07/04/19 19:55 - HPI HPI: 59-year-old -[place] female presents to the emergency department with a complaint of a 2-day history of shortness of breath, some wheezing, and her symptoms worsen with exertion. She has a history of COPD but is not oxygen dependent at home. She also has a history of IBS, hypothyroidism, insulin- dependent diabetes and previous tobacco abuse. She follows with Dr. Guthrie for pulmonology and has another appointment coming up in 4 days. She has been using her albuterol inhaler and nebulizer treatments, as well as rest for medications, without any relief. She denies any chest pain, fever, nausea, vomiting or diaphoresis. No recent travel or sick contacts at home. No known exposure to anyone with Covid 19. Patient was last seen here for similar symptoms about 1 month ago. ED Past Medical Hx - Past Medical History Previous Medical History?: Yes Hx Diabetes: Yes Hx Asthma: No Hx COPD: Yes Hx HIV: No Additional medical history: IBS, sleep apnea, hypothyroid. - Surgical History Past Surgical History?: No - Social History Smoking Status: Never Smoker Substance Use Type: None - Medications Home Medications: Home Medications Medication Instructions Recorded Confirmed Last Taken Type Docusate Sodium [Colace CAP] 100 mg PO BID PRN #20 capsule 12/03/17 04/01/19 Unknown Rx Tramadol HCl [Ultram] 50 mg PO Q6HR PRN #10 tablet 12/03/17 04/01/19 Unknown Rx Acetaminophen/Codeine 300 mg PO Q6HR PRN 04/04/19 04/04/19 Unknown History Aspirin 81 mg PO DAILY 04/04/19 04/04/19 Unknown History Aspirin EC [Halfprin EC] 81 mg PO QDAY #30 tablet. 04/04/19 Unknown Rx Benzonatate 100 mg PO Q8HR PRN 04/04/19 04/04/19 Unknown History Insulin Glargine [Lantus VIAL] 25 units SUB-Q QHS #1 vial 04/04/19 Unknown Rx Levothyroxine 100 mcg PO DAILY 04/04/19 04/04/19 Unknown History Losartan [Cozaar] 50 mg PO QDAY #30 tablet 04/04/19 Unknown Rx Simvastatin 40 mg PO QHS #30 tablet 04/04/19 Unknown Rx dilTIAZem CD [Cardizem Cd] 180 mg PO QDAY #30 cap 04/04/19 Unknown Rx metFORMIN 500 mg PO DAILY 04/04/19 04/04/19 Unknown History Prednisone [predniSONE 5 mg (6-Day 5 mg PO .TAPER #1 tab.ds.pk 06/01/19 Unknown Rx Pack, 21 Tabs)] Doxycycline Hyclate [Doxycycline 100 mg PO Q12HR 7 Days #14 tab 06/04/19 Unknown Rx Hyclate TAB] Prednisone [predniSONE 10 mg 10 mg PO .TAPER #1 tab.ds.pk 06/04/19 Unknown Rx (6-Day Pack, 21 Tabs)] ALBUTEROL NEB's [Proventil 0.083% 2.5 mg IH QID PRN #1 box 07/04/19 Unknown Rx NEBS] Albuterol INH(or & Nicu Only) 2 puff IH QID PRN #8.5 gram 07/04/19 Unknown Rx [ProAir HFA Inhaler] predniSONE [Deltasone] 20 mg PO QDAY #3 tab 07/04/19 Unknown Rx ED Review of Systems ROS: Stated complaint: CHEST TIGHTNESS/SHAHRAM/SOB Other details as noted in HPI Comment: All other systems reviewed and negative Constitutional: denies: chills, fever Eyes: denies: eye pain, vision change ENT: denies: ear pain, throat pain Respiratory: shortness of breath, wheezing Cardiovascular: denies: chest pain, edema Gastrointestinal: denies: abdominal pain, vomiting Genitourinary: denies: dysuria, discharge Musculoskeletal: denies: back pain, arthralgia Skin: denies: rash, lesions Neurological: denies: headache, weakness Physical Exam - Physical Exam Vital Signs: Vital Signs 07/04/19 18:39 Temperature 98.3 F Pulse Rate 91 H Respiratory 18 Rate Blood Pressure 155/71 O2 Sat by Pulse 99 Oximetry Physical Exam: GENERAL: The patient is well-developed well-nourished. HENT: Normocephalic. Atraumatic. Patient has moist mucous membranes. EYES: Extraocular motions are intact. NECK: Supple. Trachea is midline. CHEST/LUNGS: There is some decreased lung sounds bilaterally with some mild wheezing heard. There is tachypnea but no accessory muscle use. There is no respiratory distress noted. HEART/CARDIOVASCULAR: Regular. There is no tachycardia. ABDOMEN: Abdomen is soft, nontender. Patient has normal bowel sounds. There is no abdominal distention. SKIN: Skin is warm and dry. NEURO: The patient is awake, alert, and oriented. The patient is cooperative. The patient has no focal neurologic deficits. Normal speech. MUSCULOSKELETAL: There is no tenderness or deformity. There is no evidence of acute injury. ED Course Vital Signs 07/04/19 18:39 Temperature 98.3 F Pulse Rate 91 H Respiratory 18 Rate Blood Pressure 155/71 O2 Sat by Pulse 99 Oximetry ED Medical Decision Making - Lab Data Result diagrams: 07/04/19 20:45 07/04/19 20:45 - EKG Data -: EKG Interpreted by Me EKG shows normal: sinus rhythm, axis, intervals, QRS complexes, ST-T waves Rate: normal - EKG Data When compared to previous EKG there are: no significant change Interpretation: normal EKG, unchanged when compared t (06/07/19) - Radiology Data Radiology results: image reviewed interpreted by me: Chest x-ray does not show any acute process. There are no pleural effusions, obvious pneumonia and there is no pneumothorax. - Medical Decision Making This patient presents to the emergency department with a 2-day history of some shortness of breath, wheezing. On examination she does have some decreased breath sounds and some mild wheezing heard. She has some tachypnea but no accessory muscle use. Patient does not appear in any respiratory or acute distress. A chest x-ray was done that does not show any pneumonia, pleural effusions, pneumothorax, or any other acute process. She was given some IV fluid resuscitation, IV Solu-Medrol and an extended breathing treatment. Patient's labs were mostly unremarkable except for hyperglycemia with a blood sugar of about 450. She does not appear to be in diabetic ketoacidosis as there is no elevation in her anion gap. After the IV fluid and a dose of IV insulin her blood sugar came down to about 190 by Accu-Chek. The patient was reevaluated multiple times over multiple hours and says she is feeling greatly improved. She was able to ambulate in the emergency department without any increased work of breathing or any signs of hypoxia. For all these reasons the patient appears safe for discharge home at this time. She has good outpatient follow-up with both primary care and pulmonology. She has been given a refill of her albuterol nebulizer and inhaler, as well as a small course of steroids. She understands that the steroids can cause hyperglycemia and she will be compliant with her insulin and we discussed dietary changes including staying aw ay from foods that are high in sugar, carbohydrates and starches. The patient will return to the emergency department with any worsening of her symptoms or any acute distress. Critical Care Time: No Critical care attestation.: If time is entered above; I have spent that time in minutes in the direct care of this critically ill patient, excluding procedure time. 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 Take your insulin as prescribed. Try and stay away from foods that are high in sugar, carbohydrates and starches. Keep a blood sugar log. Return to the emergency department with any worsening of your symptoms or any acute distress. Prescriptions: predniSONE [Deltasone] 20 mg PO QDAY #3 tab Albuterol INH(or & Nicu Only) [ProAir HFA Inhaler] 2 puff IH QID PRN #8.5 gram PRN Reason: Shortness Of Breath ALBUTEROL NEB's [Proventil 0.083% NEBS] 2.5 mg IH QID PRN #1 box PRN Reason: Wheezing Referrals: ARUNA ANDERSON MD [Primary Care Provider] - 3-5 Days KINGA VILLASENOR MD [Staff Physician] - 3-5 Days Time of Disposition: 23:30
[2019-07-04 20:59] LABS: Basophils # (Auto) 0.1 K/mm3 (0.0-0.1); Basophils % (Auto) 1.1 % (0.0-1.8); Eosinophils # (Auto) 0.1 K/mm3 (0.0-0.4); Eosinophils % (Auto) 2.8 % (0.0-4.3); Hemoglobin 11.3 gm/dl (10.1-14.3); Lymphocytes % (Auto) 39.8 % (13.4-35.0); Mean Corpuscular HGB Conc 32 % (30-34); Mean Corpuscular Volume 93 fl (79-97); Monocytes # (Auto) 0.3 K/mm3 (0.0-0.8); Monocytes % (Auto) 6.9 % (0.0-7.3); Platelet Count 244 K/mm3 (140-440); Red Blood Count 3.76 M/mm3 (3.65-5.03); Red Cell Distribution Width 13.8 % (13.2-15.2)
[2019-07-04 21:11] LABS: INR 0.93 (0.87-1.13)
[2019-07-04 21:27] LABS: BUN/Creatinine Ratio 14; Blood Urea Nitrogen 10 mg/dL (7-17); Calcium 10.4 mg/dL (8.4-10.2); Hemolysis Index 10
[2019-07-04] MEDS ORDERED: SODIUM CHLORIDE 0.9% 1000 ML 1,000 ML IV ONE (21:29)
[2019-07-04] MEDS ORDERED: INSULIN REGULAR, HUMAN 100 UNITS/1 ML IV ONE (21:29)
[2019-07-04 21:37] VITALS: BP 116/55
== END 2019-07-04 23:56 | disposition home or self-care (01) ==
LOC: ED 18:27
DX: J44.1 Chronic obstructive pulmonary disease with (acute) exacerbation (principal); E11.65 Type 2 diabetes mellitus with hyperglycemia; E03.9 Hypothyroidism, unspecified; Z79.899 Other long term (current) drug therapy; Z88.0 Allergy status to penicillin
CPT/HCPCS: 36415; 71046; 80048; 82962; 83880; 84484; 85025; 85610; 93005; 94640; 96361; 96374; 96375; 99284; J2930; J7030; 94644; J1815

== ENCOUNTER 2021-03-05 07:23 | Emergency (ER) | payer MEDICARE ==
[2021-03-05] MEDS ORDERED: predniSONE 20 MG TAB PO ONE (07:32)
[2021-03-05] MEDS ORDERED: ALBUTEROL 2.5 MG/3 ML NEBU IH ONE (07:32)
[2021-03-05] MEDS ORDERED: IPRATROPIUM 0.02% NEBU 2.5 ML IH ONE (07:32)
--- NOTE | 2021-03-05 07:36 | Emergency Department Report ---
ED Asthma HPI - General Chief Complaint: Chest Pain Stated Complaint: CHEST PAIN/SOB Time Seen by Provider: 03/05/21 07:27 - History of Present Illness Initial Comments: Patient presents with shortness of breath. Since , she has been having trouble breathing. She has been using her inhaler. She has been on prednisone. Her insurance company sent out a mobile urgent care. They did a coronavirus test which was negative. Patient is still having trouble. This morning, she woke up and was still having some difficulty breathing. She has been wheezing. She has been using her albuterol inhalers. She has been using prednisone at 10 mg. She states she was not getting any better and decided to come here for evaluation. She has been admitted. She is never been intubated. She has a dry cough. There is no phlegm. There is no fever. - Related Data Home Medications Medication Instructions Recorded Confirmed Last Taken Aspirin 81 mg PO DAILY 04/04/19 11/04/20 Unknown Albuterol Sulfate [Albuterol 0.63% 0.63 mg IH TID PRN 07/26/19 11/04/20 Unknown NEBS] Insulin Glargine,Hum.rec.anlog 25 units SQ QHS 07/26/19 11/04/20 07/25/19 22:00 [Lantus Solostar] 25 Levothyroxine [Synthroid] 100 mcg PO QAM 07/26/19 11/04/20 Unknown metFORMIN [Glucophage] 500 mg PO BID 07/26/19 11/04/20 Unknown Previous Rx's Medication Instructions Recorded Last Taken Type Losartan [Cozaar] 50 mg PO QDAY #30 tablet 04/04/19 Unknown Rx Azithromycin [Zithromax TAB] 500 mg PO DAILY 2 Days #2 tablet 11/05/20 Unknown Rx Benzonatate [Tessalon Perles] 100 mg PO Q8HR PRN 5 Days #15 cap 11/05/20 Unknown Rx Budesonide [Pulmicort Respules] 0.5 mg IH Q12HRT nebu 11/05/20 Unknown Rx Montelukast [Singulair] 10 mg PO QHS 30 Days #30 tablet 11/05/20 Unknown Rx Nicotine [Habitrol] 14 mg TD QDAY #60 patch 11/05/20 Unknown Rx Nitroglycerin [Nitrostat] 0.4 mg SL .Q5MIN PRN #30 tablet 11/05/20 Unknown Rx Pravastatin [Pravachol] 40 mg PO QHS tablet 11/05/20 Unknown Rx Prednisone [predniSONE 10 mg 10 mg PO .TAPER #1 tab.ds.pk 11/05/20 Unknown Rx (6-Day Pack, 21 Tabs)] levoFLOXacin [Levaquin] 750 mg PO QDAY 5 Days #5 tablet 11/05/20 Unknown Rx ALBUTEROL NEB's [Proventil 0.083% 5 mg IH TID PRN #1 box 03/05/21 Unknown Rx NEBS] Albuterol Mdi (or & Nicu Only) 2 puff IH QID PRN #8.5 gram 03/05/21 Unknown Rx [ProAir HFA Inhaler] Ipratropium [Atrovent] 0.5 mg IH Q6HRT #1 box 03/05/21 Unknown Rx predniSONE [Deltasone] 50 mg PO QDAY #5 tab 03/05/21 Unknown Rx Allergies Allergy/AdvReac Type Severity Reaction Status Date / Time Penicillins Allergy Shortness Verified 03/05/21 07:33 of Breath ED Review of Systems ROS: Stated complaint: CHEST PAIN/SOB Other details as noted in HPI Comment: All other systems reviewed and negative Constitutional: denies: fever Eyes: denies: vision change ENT: denies: epistaxis Respiratory: see HPI Cardiovascular: denies: orthopnea Endocrine: denies: unexplained weight loss Gastrointestinal: denies: abdominal pain Genitourinary: denies: dysuria Musculoskeletal: denies: back pain Skin: denies: rash Neurological: denies: headache Hematological/Lymphatic: denies: easy bruising ED Past Medical Hx - Past Medical History Hx Hypertension: Yes Hx Congestive Heart Failure: No Hx Diabetes: Yes Hx Asthma: Yes Hx COPD: Yes Hx HIV: No Additional medical history: IBS, sleep apnea, hypothyroid. - Family History Family history: hypertension - Social History Smoking Status: Current Every Day Smoker (We discussed tobacco cessation x3 minutes) - Medications Home Medications: Home Medications Medication Instructions Recorded Confirmed Last Taken Type Aspirin 81 mg PO DAILY 04/04/19 11/04/20 Unknown History Losartan [Cozaar] 50 mg PO QDAY #30 tablet 04/04/19 11/04/20 Unknown Rx Albuterol Sulfate [Albuterol 0.63% 0.63 mg IH TID PRN 07/26/19 11/04/20 Unknown History NEBS] Insulin Glargine,Hum.rec.anlog 25 units SQ QHS 07/26/19 11/04/20 07/25/19 22:00 History [Lantus Solostar] 25 Levothyroxine [Synthroid] 100 mcg PO QAM 07/26/19 11/04/20 Unknown History metFORMIN [Glucophage] 500 mg PO BID 07/26/19 11/04/20 Unknown History Azithromycin [Zithromax TAB] 500 mg PO DAILY 2 Days #2 tablet 11/05/20 Unknown Rx Benzonatate [Tessalon Perles] 100 mg PO Q8HR PRN 5 Days #15 cap 11/05/20 Unknown Rx Budesonide [Pulmicort Respules] 0.5 mg IH Q12HRT nebu 11/05/20 Unknown Rx Montelukast [Singulair] 10 mg PO QHS 30 Days #30 tablet 11/05/20 Unknown Rx Nicotine [Habitrol] 14 mg TD QDAY #60 patch 11/05/20 Unknown Rx Nitroglycerin [Nitrostat] 0.4 mg SL .Q5MIN PRN #30 tablet 11/05/20 Unknown Rx Pravastatin [Pravachol] 40 mg PO QHS tablet 11/05/20 Unknown Rx Prednisone [predniSONE 10 mg 10 mg PO .TAPER #1 tab.ds.pk 11/05/20 Unknown Rx (6-Day Pack, 21 Tabs)] levoFLOXacin [Levaquin] 750 mg PO QDAY 5 Days #5 tablet 11/05/20 Unknown Rx ALBUTEROL NEB's [Proventil 0.083% 5 mg IH TID PRN #1 box 03/05/21 Unknown Rx NEBS] Albuterol Mdi (or & Nicu Only) 2 puff IH QID PRN #8.5 gram 03/05/21 Unknown Rx [ProAir HFA Inhaler] Ipratropium [Atrovent] 0.5 mg IH Q6HRT #1 box 03/05/21 Unknown Rx predniSONE [Deltasone] 50 mg PO QDAY #5 tab 03/05/21 Unknown Rx ED Physical Exam - General Limitations: No Limitations, Other (Pulse ox noted and mildly hypoxic. This improved with treatment.) General appearance: alert, in distress (Moderate) - Head Head exam: Present: atraumatic, normocephalic - Eye Eye exam: Present: normal appearance, EOMI. Absent: scleral icterus - ENT ENT exam: Present: normal orophraynx, normal external ear exam - Neck Neck exam: Present: normal inspection. Absent: meningismus - Respiratory Respiratory exam: Present: respiratory distress (Moderate), wheezes (Bilateral), prolonged expiratory - Cardiovascular Cardiovascular Exam: Present: regular rate, normal rhythm. Absent: JVD - GI/Abdominal GI/Abdominal exam: Present: soft - Extremities Exam Extremities exam: Present: normal capillary refill. Absent: pedal edema - Back Exam Back exam: Absent: CVA tenderness (R), CVA tenderness (L) - Neurological Exam Neurological exam: Present: alert, oriented X3, CN II-XII intact, normal gait - Psychiatric Psychiatric exam: Present: normal affect, normal mood - Skin Skin exam: Present: warm, dry ED Course Vital Signs 03/05/21 07:32 Temperature 98.4 F Pulse Rate 84 Respiratory 24 Rate Blood Pressure 154/90 O2 Sat by Pulse 98 Oximetry - Reevaluation(s) Reevaluation #1: 03/05/21 07:35 Continuous neb was ordered. Prednisone was ordered. Old records reviewed. Reevaluation #2: 03/05/21 08:27 Patient was feeling better after the treatments. She was still slightly wheezy. She was not hypoxic. Patient was subsequently discharged. ED Medical Decision Making - Medical Decision Making Patient presents with difficulty breathing and wheezing. She has asthma exacerbation. Clinically, she does not have pneumonia. There are no adventitious breath sounds to suggest pneumonia. She has not had a fever or cough. She had a negative coronavirus test. I do not believe this represents COVID. She has no rales. There is no dependent edema. I do not believe this represents congestive heart failure. Critical Care Time: No Critical care attestation.: If time is entered above; I have spent that time in minutes in the direct care of this critically ill patient, excluding procedure time. ED Disposition Clinical Impression: SOB (shortness of breath), Wheeze, COPD with acute exacerbation Disposition: HOME / SELF CARE / HOMELESS Is pt being admited?: No Condition: Stable Instructions: Chronic Obstructive Pulmonary Disease (ED), Chronic Obstructive Pulmonary Disease, Shortness of Breath, Adult Additional Instructions: Push fluids. Continue home medication. Return for problems. Follow-up with your regular doctor for recheck and further management. Prescriptions: Ipratropium [Atrovent] 0.5 mg IH Q6HRT #1 box predniSONE [Deltasone] 50 mg PO QDAY #5 tab Albuterol Mdi (or & Nicu Only) [ProAir HFA Inhaler] 2 puff IH QID PRN #8.5 gram PRN Reason: Shortness Of Breath ALBUTEROL NEB's [Proventil 0.083% NEBS] 5 mg IH TID PRN #1 box PRN Reason: Wheezing
[2021-03-05 07:38] VITALS: BP 154/90
== END 2021-03-05 08:33 | disposition home or self-care (01) ==
LOC: ED 07:23
DX: J44.1 Chronic obstructive pulmonary disease with (acute) exacerbation (principal); I10 Essential (primary) hypertension; E11.9 Type 2 diabetes mellitus without complications; K58.9 Irritable bowel syndrome, unspecified; G47.30 Sleep apnea, unspecified; E03.9 Hypothyroidism, unspecified; F17.200 Nicotine dependence, unspecified, uncomplicated; Z88.0 Allergy status to penicillin
CPT/HCPCS: 94640; 99283; J7512

== ENCOUNTER 2021-03-18 08:41 | Emergency (ER) | payer MEDICARE ==
[2021-03-18 09:08] VITALS: BP 142/84
[2021-03-18] MEDS ORDERED: MAGNESIUM SULFATE 2 GM/50 ML BAG IV ONE (10:16)
[2021-03-18] MEDS ORDERED: IPRATROPIUM 0.02% NEBU 2.5 ML IH ONE ×2 (10:16→14:12)
[2021-03-18] MEDS ORDERED: ALBUTEROL 2.5 MG/3 ML NEBU IH ONE ×2 (10:16→14:12)
[2021-03-18] MEDS ORDERED: methylPREDNISolone Sod Succinate 125 MG/2 ML INJ IV ONE (10:16)
--- NOTE | 2021-03-18 10:37 | Emergency Department Report ---
ED Shortness of Breath HPI - General Chief Complaint: Adult Asthma Stated Complaint: ASTHMA Time Seen by Provider: 03/18/21 10:08 Source: patient Mode of arrival: Ambulatory Limitations: No Limitations - History of Present Illness Initial Comments: Patient is a 60-year-old female presents emergency room with complaints of a COPD exacerbation that began couple days ago. She has associated cough with clear mucus production, shortness of breath, wheezing, chest tightness. She states that she has been using her nebulizer treatments at home but this morning her symptoms worsen. She states that she called EMS and she was given albuterol treatment. She states that her chest continues to feel tight. She denies any fever, vomiting, diarrhea, hemoptysis. She denies any recent travel or sick contacts. She has an allergy to penicillin. - Related Data Home Medications Medication Instructions Recorded Confirmed Last Taken Aspirin 81 mg PO DAILY 04/04/19 11/04/20 Unknown Albuterol Sulfate [Albuterol 0.63% 0.63 mg IH TID PRN 07/26/19 11/04/20 Unknown NEBS] Insulin Glargine,Hum.rec.anlog 25 units SQ QHS 07/26/19 11/04/20 07/25/19 22:00 [Lantus Solostar] 25 Levothyroxine [Synthroid] 100 mcg PO QAM 07/26/19 11/04/20 Unknown metFORMIN [Glucophage] 500 mg PO BID 07/26/19 11/04/20 Unknown Previous Rx's Medication Instructions Recorded Last Taken Type Losartan [Cozaar] 50 mg PO QDAY #30 tablet 04/04/19 Unknown Rx Azithromycin [Zithromax TAB] 500 mg PO DAILY 2 Days #2 tablet 11/05/20 Unknown Rx Budesonide [Pulmicort Respules] 0.5 mg IH Q12HRT nebu 11/05/20 Unknown Rx Montelukast [Singulair] 10 mg PO QHS 30 Days #30 tablet 11/05/20 Unknown Rx Nicotine [Habitrol] 14 mg TD QDAY #60 patch 11/05/20 Unknown Rx Nitroglycerin [Nitrostat] 0.4 mg SL .Q5MIN PRN #30 tablet 11/05/20 Unknown Rx Pravastatin [Pravachol] 40 mg PO QHS tablet 11/05/20 Unknown Rx Prednisone [predniSONE 10 mg 10 mg PO .TAPER #1 tab.ds.pk 11/05/20 Unknown Rx (6-Day Pack, 21 Tabs)] levoFLOXacin [Levaquin] 750 mg PO QDAY 5 Days #5 tablet 11/05/20 Unknown Rx Ipratropium [Atrovent] 0.5 mg IH Q6HRT #1 box 03/05/21 Unknown Rx predniSONE [Deltasone] 50 mg PO QDAY #5 tab 03/05/21 Unknown Rx ALBUTEROL NEB's [Proventil 0.083% 5 mg IH TID PRN #1 box 03/18/21 Unknown Rx NEBS] Albuterol Mdi (or & Nicu Only) 2 puff IH QID PRN #8.5 gram 03/18/21 Unknown Rx [ProAir HFA Inhaler] Benzonatate [Tessalon Perles] 100 mg PO Q8HR PRN 5 Days #15 cap 03/18/21 Unknown Rx Prednisone [predniSONE 10 mg 10 mg PO .TAPER #1 03/18/21 Unknown Rx (6-Day Pack, 21 Tabs)] Allergies Allergy/AdvReac Type Severity Reaction Status Date / Time Penicillins Allergy Shortness Verified 03/05/21 07:33 of Breath ED Review of Systems ROS: Stated complaint: ASTHMA Other details as noted in HPI Comment: All other systems reviewed and negative ED Past Medical Hx - Past Medical History Hx Hypertension: Yes Hx Congestive Heart Failure: No Hx Diabetes: Yes Hx Asthma: Yes Hx COPD: Yes Hx HIV: No Additional medical history: IBS, sleep apnea, hypothyroid. - Social History Smoking Status: Current Every Day Smoker (We discussed tobacco cessation x3 minutes) - Medications Home Medications: Home Medications Medication Instructions Recorded Confirmed Last Taken Type Aspirin 81 mg PO DAILY 04/04/19 11/04/20 Unknown History Losartan [Cozaar] 50 mg PO QDAY #30 tablet 04/04/19 11/04/20 Unknown Rx Albuterol Sulfate [Albuterol 0.63% 0.63 mg IH TID PRN 07/26/19 11/04/20 Unknown History NEBS] Insulin Glargine,Hum.rec.anlog 25 units SQ QHS 07/26/19 11/04/20 07/25/19 22:00 History [Lantus Solostar] 25 Levothyroxine [Synthroid] 100 mcg PO QAM 07/26/19 11/04/20 Unknown History metFORMIN [Glucophage] 500 mg PO BID 07/26/19 11/04/20 Unknown History Azithromycin [Zithromax TAB] 500 mg PO DAILY 2 Days #2 tablet 11/05/20 Unknown Rx Budesonide [Pulmicort Respules] 0.5 mg IH Q12HRT nebu 11/05/20 Unknown Rx Montelukast [Singulair] 10 mg PO QHS 30 Days #30 tablet 11/05/20 Unknown Rx Nicotine [Habitrol] 14 mg TD QDAY #60 patch 11/05/20 Unknown Rx Nitroglycerin [Nitrostat] 0.4 mg SL .Q5MIN PRN #30 tablet 11/05/20 Unknown Rx Pravastatin [Pravachol] 40 mg PO QHS tablet 11/05/20 Unknown Rx Prednisone [predniSONE 10 mg 10 mg PO .TAPER #1 tab.ds.pk 11/05/20 Unknown Rx (6-Day Pack, 21 Tabs)] levoFLOXacin [Levaquin] 750 mg PO QDAY 5 Days #5 tablet 11/05/20 Unknown Rx Ipratropium [Atrovent] 0.5 mg IH Q6HRT #1 box 03/05/21 Unknown Rx predniSONE [Deltasone] 50 mg PO QDAY #5 tab 03/05/21 Unknown Rx ALBUTEROL NEB's [Proventil 0.083% 5 mg IH TID PRN #1 box 03/18/21 Unknown Rx NEBS] Albuterol Mdi (or & Nicu Only) 2 puff IH QID PRN #8.5 gram 03/18/21 Unknown Rx [ProAir HFA Inhaler] Benzonatate [Tessalon Perles] 100 mg PO Q8HR PRN 5 Days #15 cap 03/18/21 Unknown Rx Prednisone [predniSONE 10 mg 10 mg PO .TAPER #1 03/18/21 Unknown Rx (6-Day Pack, 21 Tabs)] ED Physical Exam - General Limitations: No Limitations General appearance: alert, in no apparent distress - Head Head exam: Present: atraumatic, normocephalic - Eye Eye exam: Present: normal appearance - ENT ENT exam: Present: mucous membranes moist - Respiratory Respiratory exam: Present: wheezes (bilaterally), decreased breath sounds (bilaterally), prolonged expiratory. Absent: rales, rhonchi, stridor, chest wall tenderness, accessory muscle use - Cardiovascular Cardiovascular Exam: Present: regular rate, normal rhythm, normal heart sounds. Absent: systolic murmur, diastolic murmur, rubs, gallop - Neurological Exam Neurological exam: Present: alert, oriented X3 - Psychiatric Psychiatric exam: Present: normal affect, normal mood - Skin Skin exam: Present: warm, dry, intact ED Course Vital Signs 03/18/21 03/18/21 09:03 14:30 Temperature 98 F Pulse Rate 87 Pulse Rate [ 90 Bilateral Throughout] Respiratory 20 Rate Respiratory 18 Rate [Bilateral Throughout] Blood Pressure 142/84 [Right] O2 Sat by Pulse 98 Oximetry ED Medical Decision Making - Lab Data Result diagrams: 03/18/21 15:00 03/18/21 13:08 - Radiology Data Radiology results: report reviewed Ordering Physician: NIRANJAN LARSEN Date of Service: 03/18/21 Procedure(s): XR chest 1V ap Accession Number(s): [id number] cc: NIRANJAN LARSEN Fluoro Time In Minutes: CHEST 1 VIEW 03/18/2021 9:33 AM INDICATION / CLINICAL INFORMATION: wheezing, SOB. COMPARISON: 11/03/2020 FINDINGS: SUPPORT DEVICES: None. HEART / MEDIASTINUM: No significant abnormality. LUNGS / PLEURA: No significant pulmonary or pleural abnormality. No pneumothorax. ADDITIONAL FINDINGS: No significant additional findings. IMPRESSION: 1. No acute findings. Signer Name: Pa Arriaga DO Signed: 03/18/2021 10:34 AM Workstation Name: [id number] Transcribed By: NS Dictated By: PA ARRIAGA DO Electronically Authenticated By: PA ARRIAGA DO Signed Date/Time: 03/18/21 1034 DD/ 1034 TD/TT: - Medical Decision Making Patient is a 60-year-old female presents emergency room with complaints of a COPD exacerbation that began couple days ago. She has associated cough with clear mucus production, shortness of breath, wheezing, chest tightness. She states that she has been using her nebulizer treatments at home but this morning her symptoms worsen. She states that she called EMS and she was given albuterol treatment. She states that her chest continues to feel tight. She denies any fever, vomiting, diarrhea, hemoptysis. She denies any recent travel or sick contacts. She has an allergy to penicillin. Vitals are normal. On exam patient has wheezing bilaterally, prolonged expiratory phase, decreased breath sounds, no accessory muscle use. Chest x-ray 1. No acute findings. Labs with elevated glucose, patient has chronic diabetes on insulin therapy, she states that steroids do typically increase her sugar and she adjust accordingly. She has no leukocytosis. She has no productive cough. Do not suspect bacterial pneumonia or bacterial bronchitis at this time. Patient given IV steroids, IV magnesium, continuous neb treatment. On reexamination patient is feeling much better, wheezing has resolved. pt was ambulated in the ED and able to maintain oxygen saturation of 93% or greater on room air. Discussed all findings with patient. Advised patient Please use medication as prescribed. Please do your nebulizer treatments every 4-6 hours as needed for wheezing/shortness of breath. Increase your fluid intake. Follow-up with your primary care doctor. 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 Return to emergency room for any new or worsening symptoms. Also discussed with patient to monitor her blood glucose as a steroids would likely continue to increase her sugar and to adjust insulin as she has previously been advised by her doctor Critical care attestation.: If time is entered above; I have spent that time in minutes in the direct care of this critically ill patient, excluding procedure time. ED Disposition Clinical Impression: COPD exacerbation Disposition: 01 HOME / SELF CARE / HOMELESS Is pt being admited?: No Does the pt Need Aspirin: No Condition: Stable Instructions: Chronic Obstructive Pulmonary Disease Exacerbation, [id number], Chronic Obstructive Pulmonary Disease (ED) Additional Instructions: Please use medication as prescribed. Please do your nebulizer treatments every 4-6 hours as needed for wheezing/shortness of breath. Increase your fluid intake. Follow-up with your primary care doctor. 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 Return to emergency room for any new or worsening symptoms. Prescriptions: Prednisone [predniSONE 10 mg (6-Day Pack, 21 Tabs)] 10 mg PO .TAPER #1 Albuterol Mdi (or & Nicu Only) [ProAir HFA Inhaler] 2 puff IH QID PRN #8.5 gram PRN Reason: Shortness Of Breath ALBUTEROL NEB's [Proventil 0.083% NEBS] 5 mg IH TID PRN #1 box PRN Reason: Wheezing Benzonatate [Tessalon Perles] 100 mg PO Q8HR PRN 5 Days #15 cap PRN Reason: Cough Referrals: ARUNA ANDERSON MD [Primary Care Provider] - 3-5 Days KINGA VILLASENOR MD [Staff Physician] - 3-5 Days Time of Disposition: 15:45 Print Language: POLISH
[2021-03-18] MEDS ORDERED: methylPREDNISolone Sod Succinate 125 MG/2 ML INJ ONE (13:18)
[2021-03-18 13:47] LABS: Alanine Aminotransferase 20 units/L (7-56); Albumin 3.6 g/dL (3.9-5); Blood Urea Nitrogen 7 mg/dL (7-17); Calcium 10.5 mg/dL (8.4-10.2); Hemolysis Index 9
[2021-03-18 14:07] LABS: BUN/Creatinine Ratio 12
[2021-03-18 15:23] LABS: Basophils # (Auto) 0.1 K/mm3 (0.0-0.1); Eosinophils # (Auto) 0.3 K/mm3 (0.0-0.4); Eosinophils % (Auto) 4.7 % (0.0-4.3); Hematocrit 37.3 % (30.3-42.9); Hemoglobin 11.8 gm/dl (10.1-14.3); Lymphocytes # (Auto) 1.3 K/mm3 (1.2-5.4); Lymphocytes % (Auto) 20.3 % (13.4-35.0); Mean Corpuscular HGB Conc 32 % (30-34); Mean Corpuscular Volume 90 fl (79-97); Monocytes # (Auto) 0.3 K/mm3 (0.0-0.8); Monocytes % (Auto) 4.1 % (0.0-7.3); Platelet Count 271 K/mm3 (140-440); Red Blood Count 4.14 M/mm3 (3.65-5.03); Red Cell Distribution Width 14.1 % (13.2-15.2)
== END 2021-03-18 17:08 | disposition home or self-care (01) ==
LOC: ED 08:41
DX: J44.1 Chronic obstructive pulmonary disease with (acute) exacerbation (principal); I10 Essential (primary) hypertension; E11.9 Type 2 diabetes mellitus without complications; G47.30 Sleep apnea, unspecified; F17.200 Nicotine dependence, unspecified, uncomplicated; Z88.0 Allergy status to penicillin
CPT/HCPCS: 36415; 71045; 80053; 82962; 83735; 85025; 94640; 96365; 96375; 99284; J2930; J3475; 94644

== ENCOUNTER 2021-05-11 22:34 | Emergency (ER) | payer MEDICARE ==
[2021-05-11] MEDS ORDERED: ALBUTEROL 2.5 MG/3 ML NEBU IH ONE (23:14)
[2021-05-11] MEDS ORDERED: IPRATROPIUM 0.02% NEBU 2.5 ML IH ONE (23:14)
[2021-05-11] MEDS ORDERED: MAGNESIUM SULFATE 2 GM/50 ML BAG IV ONE (23:15)
[2021-05-11] MEDS ORDERED: methylPREDNISolone Sod Succinate 125 MG/2 ML INJ IV ONE (23:15)
--- NOTE | 2021-05-11 23:29 | Emergency Department Report ---
ED Shortness of Breath HPI - General Chief Complaint: Dyspnea/Respdistress Stated Complaint: SOB Time Seen by Provider: 05/11/21 22:59 Source: patient Mode of arrival: Ambulatory Limitations: No Limitations - History of Present Illness Initial Comments: 61-year-old female with a past medical history of COPD without home oxygen use presents to the hospital planing of increased wheezing shortness of breath the last 1 week. Patient recently took some leftover prednisone that she had at home but has since run out. Today wheezing and shortness of breath worsens despite taking multiple bronchodilators. 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 She is intermittently compliant and due to the cost of Symbicort. Her PMD Dr. Anderson did provide a sample of an alternative inhaled steroid within the last couple months. Patient just filled her Symbicort this week and has since he started the medication. Dry cough reported with anterior chest wall and abdomen pain worse with movement, palpation, and cough. No reports of fever, calf tenderness, or leg edema. 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 - Related Data Home Medications Medication Instructions Recorded Confirmed Last Taken Aspirin 81 mg PO DAILY 04/04/19 11/04/20 Unknown Albuterol Sulfate [Albuterol 0.63% 0.63 mg IH TID PRN 07/26/19 11/04/20 Unknown NEBS] Insulin Glargine,Hum.rec.anlog 25 units SQ QHS 07/26/19 11/04/20 07/25/19 22:00 [Lantus Solostar] 25 Levothyroxine [Synthroid] 100 mcg PO QAM 07/26/19 11/04/20 Unknown metFORMIN [Glucophage] 500 mg PO BID 07/26/19 11/04/20 Unknown Previous Rx's Medication Instructions Recorded Last Taken Type Losartan [Cozaar] 50 mg PO QDAY #30 tablet 04/04/19 Unknown Rx Azithromycin [Zithromax TAB] 500 mg PO DAILY 2 Days #2 tablet 11/05/20 Unknown Rx Budesonide [Pulmicort Respules] 0.5 mg IH Q12HRT nebu 11/05/20 Unknown Rx Montelukast [Singulair] 10 mg PO QHS 30 Days #30 tablet 11/05/20 Unknown Rx Nicotine [Habitrol] 14 mg TD QDAY #60 patch 11/05/20 Unknown Rx Nitroglycerin [Nitrostat] 0.4 mg SL .Q5MIN PRN #30 tablet 11/05/20 Unknown Rx Pravastatin [Pravachol] 40 mg PO QHS tablet 11/05/20 Unknown Rx levoFLOXacin [Levaquin] 750 mg PO QDAY 5 Days #5 tablet 11/05/20 Unknown Rx predniSONE [Deltasone] 50 mg PO QDAY #5 tab 03/05/21 Unknown Rx ALBUTEROL NEB's [Proventil 0.083% 5 mg IH TID PRN #1 box 03/18/21 Unknown Rx NEBS] Albuterol Mdi (or & Nicu Only) 2 puff IH QID PRN #8.5 gram 03/18/21 Unknown Rx [ProAir HFA Inhaler] Benzonatate [Tessalon Perles] 100 mg PO Q8HR PRN 5 Days #15 cap 03/18/21 Unknown Rx Prednisone [predniSONE 10 mg 10 mg PO .TAPER #1 03/18/21 Unknown Rx (6-Day Pack, 21 Tabs)] Ipratropium [Atrovent NEB] 0.5 mg IH Q6HRT #1 box 05/12/21 Unknown Rx Prednisone [predniSONE 10 mg 10 mg PO .TAPER #1 tab.ds.pk 05/12/21 Unknown Rx (6-Day Pack, 21 Tabs)] Allergies Allergy/AdvReac Type Severity Reaction Status Date / Time Penicillins Allergy Shortness Verified 03/05/21 07:33 of Breath ED Review of Systems ROS: Stated complaint: SOB Other details as noted in HPI Comment: All other systems reviewed and negative ED Past Medical Hx - Past Medical History Hx Hypertension: Yes Hx Congestive Heart Failure: No Hx Diabetes: Yes Hx Asthma: Yes Hx COPD: Yes Hx HIV: No Additional medical history: IBS, sleep apnea, hypothyroid. - Social History Smoking Status: Current Every Day Smoker (We discussed tobacco cessation x3 minutes) - Medications Home Medications: Home Medications Medication Instructions Recorded Confirmed Last Taken Type Aspirin 81 mg PO DAILY 04/04/19 11/04/20 Unknown History Losartan [Cozaar] 50 mg PO QDAY #30 tablet 04/04/19 11/04/20 Unknown Rx Albuterol Sulfate [Albuterol 0.63% 0.63 mg IH TID PRN 07/26/19 11/04/20 Unknown History NEBS] Insulin Glargine,Hum.rec.anlog 25 units SQ QHS 07/26/19 11/04/20 07/25/19 22:00 History [Lantus Solostar] 25 Levothyroxine [Synthroid] 100 mcg PO QAM 07/26/19 11/04/20 Unknown History metFORMIN [Glucophage] 500 mg PO BID 07/26/19 11/04/20 Unknown History Azithromycin [Zithromax TAB] 500 mg PO DAILY 2 Days #2 tablet 11/05/20 Unknown Rx Budesonide [Pulmicort Respules] 0.5 mg IH Q12HRT nebu 11/05/20 Unknown Rx Montelukast [Singulair] 10 mg PO QHS 30 Days #30 tablet 11/05/20 Unknown Rx Nicotine [Habitrol] 14 mg TD QDAY #60 patch 11/05/20 Unknown Rx Nitroglycerin [Nitrostat] 0.4 mg SL .Q5MIN PRN #30 tablet 11/05/20 Unknown Rx Pravastatin [Pravachol] 40 mg PO QHS tablet 11/05/20 Unknown Rx levoFLOXacin [Levaquin] 750 mg PO QDAY 5 Days #5 tablet 11/05/20 Unknown Rx predniSONE [Deltasone] 50 mg PO QDAY #5 tab 03/05/21 Unknown Rx ALBUTEROL NEB's [Proventil 0.083% 5 mg IH TID PRN #1 box 03/18/21 Unknown Rx NEBS] Albuterol Mdi (or & Nicu Only) 2 puff IH QID PRN #8.5 gram 03/18/21 Unknown Rx [ProAir HFA Inhaler] Benzonatate [Tessalon Perles] 100 mg PO Q8HR PRN 5 Days #15 cap 03/18/21 Unknown Rx Prednisone [predniSONE 10 mg 10 mg PO .TAPER #1 03/18/21 Unknown Rx (6-Day Pack, 21 Tabs)] Ipratropium [Atrovent NEB] 0.5 mg IH Q6HRT #1 box 05/12/21 Unknown Rx Prednisone [predniSONE 10 mg 10 mg PO .TAPER #1 tab.ds.pk 05/12/21 Unknown Rx (6-Day Pack, 21 Tabs)] ED Physical Exam - General Limitations: No Limitations - Other Other exam information: General: No acute distress Head: Atraumatic Eyes: normal appearance ENT: Moist mucous membranes Neck: Normal appearance, no midline tenderness Chest: Bilateral wheezing, no respiratory distress, no accessory muscle use CV: Regular rate and rhythm Abdomen: Soft, normal bowel sounds, nontender, nondistended, no rebound or guarding Back: Normal inspection Extremity: Normal inspection, full range of motion, no calf tenderness or leg edema Neuro: Alert O x 3, no facial asymmetry, speech clear, no gross motor sensory deficit Psych: Appropriate behavior Skin: No rash ED Course Vital Signs 05/11/21 05/11/21 05/11/21 22:48 23:33 23:39 Temperature 98.2 F Pulse Rate 65 52 L Pulse Rate [ Bilateral Throughout] Respiratory 22 12 Rate Respiratory Rate [Bilateral Throughout] Blood Pressure 168/61 123/62 Blood Pressure 123/62 [Left] O2 Sat by Pulse 100 100 100 Oximetry 05/11/21 05/12/21 05/12/21 23:45 00:01 00:15 Temperature Pulse Rate 65 66 87 Pulse Rate [ Bilateral Throughout] Respiratory 14 15 8 L Rate Respiratory Rate [Bilateral Throughout] Blood Pressure 123/62 135/57 135/57 Blood Pressure [Left] O2 Sat by Pulse 99 99 100 Oximetry 05/12/21 05/12/21 05/12/21 00:31 00:45 01:01 Temperature Pulse Rate 58 L 60 60 Pulse Rate [ Bilateral Throughout] Respiratory 10 L 13 20 Rate Respiratory Rate [Bilateral Throughout] Blood Pressure 137/56 137/56 147/67 Blood Pressure [Left] O2 Sat by Pulse 100 100 100 Oximetry 05/12/21 05/12/21 05/12/21 01:15 01:31 01:45 Temperature Pulse Rate 65 70 78 Pulse Rate [ Bilateral Throughout] Respiratory 21 17 18 Rate Respiratory Rate [Bilateral Throughout] Blood Pressure 147/67 154/53 154/53 Blood Pressure 147/67 [Left] O2 Sat by Pulse 100 98 99 Oximetry 05/12/21 05/12/21 05/12/21 02:01 02:15 02:30 Temperature Pulse Rate 66 85 Pulse Rate [ 80 Bilateral Throughout] Respiratory 25 H 19 Rate Respiratory 20 Rate [Bilateral Throughout] Blood Pressure 140/60 140/60 Blood Pressure [Left] O2 Sat by Pulse 100 100 Oximetry 05/12/21 05/12/21 05/12/21 02:31 02:37 02:45 Temperature Pulse Rate 86 72 Pulse Rate [ 89 Bilateral Throughout] Respiratory 22 13 Rate Respiratory 20 Rate [Bilateral Throughout] Blood Pressure 139/50 139/50 Blood Pressure [Left] O2 Sat by Pulse 94 100 Oximetry 05/12/21 05/12/21 05/12/21 03:00 03:01 03:15 Temperature Pulse Rate 87 87 85 Pulse Rate [ Bilateral Throughout] Respiratory 21 21 13 Rate Respiratory Rate [Bilateral Throughout] Blood Pressure 130/60 130/60 Blood Pressure 130/60 [Left] O2 Sat by Pulse 100 100 100 Oximetry 05/12/21 05/12/21 05/12/21 03:31 03:45 04:01 Temperature Pulse Rate 83 95 H 98 H Pulse Rate [ Bilateral Throughout] Respiratory 19 20 17 Rate Respiratory Rate [Bilateral Throughout] Blood Pressure 139/68 139/68 149/59 Blood Pressure [Left] O2 Sat by Pulse 93 93 92 Oximetry 05/12/21 05/12/21 05/12/21 04:15 04:31 04:45 Temperature Pulse Rate 96 H 96 H 101 H Pulse Rate [ Bilateral Throughout] Respiratory 18 17 19 Rate Respiratory Rate [Bilateral Throughout] Blood Pressure 149/59 136/62 136/62 Blood Pressure [Left] O2 Sat by Pulse 91 91 93 Oximetry 05/12/21 05/12/21 05/12/21 05:01 05:15 05:20 Temperature Pulse Rate 94 H 89 89 Pulse Rate [ Bilateral Throughout] Respiratory 17 23 23 Rate Respiratory Rate [Bilateral Throughout] Blood Pressure 117/49 117/49 Blood Pressure 117/49 [Left] O2 Sat by Pulse 95 97 97 Oximetry - Reevaluation(s) Reevaluation #1: 05/12/21 02:29 Patient reports feeling better after continuous neb, Cymetra, and magnesium. Patient ambulates saturation decreased to 92% but increases to 97% while at rest. Patient feels she could benefit from additional neb prior to discharge. ED Medical Decision Making - Lab Data Result diagrams: 05/11/21 23:29 05/11/21 23:29 Lab Results 05/11/21 05/11/21 Range/Units 23:29 23:29 WBC 7.7 (4.5-11.0) K/mm3 RBC 4.65 (3.65-5.03) M/mm3 Hgb 13.7 (10.1-14.3) gm/dl Hct 42.7 (30.3-42.9) % MCV 92 (79-97) fl MCH 30 (28-32) pg MCHC 32 (30-34) % RDW 14.8 (13.2-15.2) % Plt Count 298 (140-440) K/mm3 Lymph % (Auto) Plastic Printer [place] % (Auto) Plastic Printer Eos % (Auto) Plastic Printer Baso % (Auto) Plastic Printer Lymph # (Auto) Plastic Printer [place] # (Auto) Plastic Printer Eos # (Auto) Plastic Printer Baso # (Auto) Plastic Printer Add Manual Diff Complete Total Counted 100 Seg Neutrophils % Plastic Printer Seg Neuts % (Manual) 52.0 (40.0-70.0) % Band Neutrophils % 0 % Lymphocytes % (Manual) 38.0 H (13.4-35.0) % Reactive Lymphs % (Man) 0 % Monocytes % (Manual) 7.0 (0.0-7.3) % Eosinophils % (Manual) 3.0 (0.0-4.3) % Basophils % (Manual) 0 (0.0-1.8) % Metamyelocytes % 0 % Myelocytes % 0 % Promyelocytes % 0 % Blast Cells % 0 % Nucleated RBC % Not Reportable Seg Neutrophils # Plastic Printer Seg Neutrophils # Man 4.0 (1.8-7.7) K/mm3 Band Neutrophils # 0.0 K/mm3 Lymphocytes # (Manual) 2.9 (1.2-5.4) K/mm3 Abs React Lymphs (Man) 0.0 K/mm3 Monocytes # (Manual) 0.5 (0.0-0.8) K/mm3 Eosinophils # (Manual) 0.2 (0.0-0.4) K/mm3 Basophils # (Manual) 0.0 (0.0-0.1) K/mm3 Metamyelocytes # 0.0 K/mm3 Myelocytes # 0.0 K/mm3 Promyelocytes # 0.0 K/mm3 Blast Cells # 0.0 K/mm3 WBC Morphology Not Reportable Hypersegmented Neuts Not Reportable Hyposegmented Neuts Not Reportable Hypogranular Neuts Not Reportable Smudge Cells Not Reportable Toxic Granulation Not Reportable Toxic Vacuolation Not Reportable Dohle Bodies Not Reportable Pelger-Huet Anomaly Not Reportable Tai Rods Not Reportable Platelet Estimate Consistent w auto Clumped Platelets Not Reportable Plt Clumps, EDTA Not Reportable Large Platelets Not Reportable Giant Platelets Not Reportable Platelet Satelliting Not Reportable Plt Morphology Comment Not Reportable RBC Morphology Normal Dimorphic RBCs Not Reportable Polychromasia Not Reportable Hypochromasia Not Reportable Poikilocytosis Not Reportable Anisocytosis Not Reportable Microcytosis Not Reportable Macrocytosis Not Reportable Spherocytes Not Reportable Pappenheimer Bodies Not Reportable Sickle Cells Not Reportable Target Cells Not Reportable Tear Drop Cells Not Reportable Ovalocytes Not Reportable Helmet Cells Not Reportable [place] Bodies Not Reportable [place] Rings Not Reportable [place] Cells Not Reportable Bite Cells Not Reportable Crenated Cell Not Reportable Elliptocytes Not Reportable Acanthocytes (Spur) Not Reportable Rouleaux Not Reportable Hemoglobin C Crystals Not Reportable Schistocytes Not Reportable Malaria parasites Not Reportable Audie Bodies Not Reportable Hem Pathologist Commnt No Sodium 139 (137-145) mmol/L Potassium 4.4 (3.6-5.0) mmol/L Chloride 106.4 (98-107) mmol/L Carbon Dioxide 21 L (22-30) mmol/L Anion Gap 16 mmol/L BUN 17 (7-17) mg/dL Creatinine 0.7 (0.6-1.2) mg/dL Estimated GFR > 60 ml/min BUN/Creatinine Ratio 24 % Glucose 280 H (65-100) mg/dL Calcium 10.6 H (8.4-10.2) mg/dL - Radiology Data Radiology results: report reviewed CHEST 1 VIEW 05/11/2021 11:20 PM INDICATION / CLINICAL INFORMATION: Wheezing and chest pain. COMPARISON: 03/18/21. FINDINGS: SUPPORT DEVICES: None. HEART / MEDIASTINUM: The heart size and pulmonary vasculature are normal. There is moderate calcification in the aortic arch without aneurysm. LUNGS / PLEURA: No significant pulmonary or pleural abnormality. No pneumothorax. ADDITIONAL FINDINGS: No significant additional findings. IMPRESSION: No acute abnormality or significant change. - Medical Decision Making 61-year female presents to hospital acute COPD exacerbation. Symptoms improved with bronchodilators, Solu-Medrol, and magnesium. Patient will be discharged home on steroids and a refill in her ipratropium as requested. Patient counseled on importance of being compliant with her inhaled corticosteroids to decrease her frequency of COPD exacerbations Critical Care Time: No Critical care attestation.: If time is entered above; I have spent that time in minutes in the direct care of this critically ill patient, excluding procedure time. ED Disposition Clinical Impression: COPD with acute exacerbation Disposition: 01 HOME / SELF CARE / HOMELESS Is pt being admited?: No Does the pt Need Aspirin: No Condition: Stable Instructions: Chronic Obstructive Pulmonary Disease (ED), Chronic Obstructive Pulmonary Disease Additional Instructions: Take the medication as prescribed. Follow-up with your doctor or doctor/clinic provided. Return if symptoms worsen as indicated by your discharge instructions. Prescriptions: Ipratropium [Atrovent NEB] 0.5 mg IH Q6HRT #1 box Prednisone [predniSONE 10 mg (6-Day Pack, 21 Tabs)] 10 mg PO .TAPER #1 tab.ds.pk Referrals: ARUNA ANDERSON MD [Primary Care Provider] - 3-5 Days KINGA VILLASENOR MD [Staff Physician] - 3-5 Days Time of Disposition: 05:51
--- NOTE | 2021-05-11 23:47 | XRay Report ---
CHEST 1 VIEW 05/11/2021 11:20 PM INDICATION / CLINICAL INFORMATION: Wheezing and chest pain. COMPARISON: 03/18/21. FINDINGS: SUPPORT DEVICES: None. HEART / MEDIASTINUM: The heart size and pulmonary vasculature are normal. There is moderate calcifica tion in the aortic arch without aneurysm. LUNGS / PLEURA: No significant pulmonary or pleural abnormality. No pneumothorax. ADDITIONAL FINDINGS: No significant additional findings. IMPRESSION: No acute abnormality or significant change. Signer Name: Scott Jackson MD Signed: 05/11/2021 11:42 PM Workstation Name: [id number]
[2021-05-12 00:07] LABS: Hematocrit 42.7 % (30.3-42.9); Hemoglobin 13.7 gm/dl (10.1-14.3); Mean Corpuscular HGB Conc 32 % (30-34); Mean Corpuscular Volume 92 fl (79-97); Platelet Count 298 K/mm3 (140-440); Red Blood Count 4.65 M/mm3 (3.65-5.03); Red Cell Distribution Width 14.8 % (13.2-15.2)
[2021-05-12 00:14] LABS: Blood Urea Nitrogen 17 mg/dL (7-17); Calcium 10.6 mg/dL (8.4-10.2); Hemolysis Index 3
[2021-05-12 00:15] LABS: BUN/Creatinine Ratio 24
[2021-05-12 01:18] LABS: Basophils % (Manual) 0 % (0.0-1.8); Total Cells Counted 100
[2021-05-12 01:19] LABS: Platelet Estimate Consistent w Auto; RBC Morphology Normal
[2021-05-12] MEDS ORDERED: ALBUTEROL 2.5 MG/3 ML NEBU IH ONE (02:25)
[2021-05-12 06:29] VITALS: BP 134/57
== END 2021-05-12 07:02 | disposition home or self-care (01) ==
LOC: ED 22:34
DX: J44.1 Chronic obstructive pulmonary disease with (acute) exacerbation (principal); I10 Essential (primary) hypertension; E11.9 Type 2 diabetes mellitus without complications; F17.200 Nicotine dependence, unspecified, uncomplicated; Z88.0 Allergy status to penicillin
CPT/HCPCS: 36415; 71045; 80048; 85007; 85025; 94640; 94644; 96365; 96375; 99284; J2930; J3475

== ENCOUNTER → 2021-06-05 | Emergency (ER) | payer MEDICARE ==
[~2021-06-05] MED LIST: ACETAMINOPHEN 325 MG TAB PO ONE; ALBUTEROL 2.5 MG/3 ML NEBU IH ONE; BENZONATATE 100 MG CAP PO ONE; INSULIN REGULAR, HUMAN 100 UNITS/1 ML SUB-Q ONE; IPRATROPIUM 0.02% NEBU 2.5 ML IH ONE; methylPREDNISolone Sod Succinate 125 MG/2 ML INJ IV ONE
--- NOTE | 2021-06-05 07:56 | Emergency Department Report ---
ED General Adult HPI - General Chief complaint: Chest Pain Stated complaint: Cough, wheezing, chest wall pain, shortness of breath Time Seen by Provider: 06/05/21 07:44 Source: patient, RN notes reviewed, old records reviewed Mode of arrival: Ambulatory Limitations: No Limitations - History of Present Illness Initial comments: This patient is a pleasant 61-year-old female with a history of diabetes and COPD, who presents to the ER today with a complaint of chest wall tightness, cough, wheezing, shortness of breath. Denies fever, loss of taste and smell, travel, surgery, immobilization, DVT/PE risk factors. Chest wall pain increases with palpation, and decreases with rest. Does not radiate to the back, arms or neck. States that her symptoms today are consistent and similar to prior episodes of COPD exacerbations. Has been using albuterol at home with minimal improvement of symptoms. Symptoms typically improve with albuterol, additional medications, as well as steroids, and Tessalon Perles as per the patient. Her private hoop maker helper machine is Dr. Paulo Wahl -: Gradual, days(s) Location: chest (Anterior chest wall pain) Quality: aching Consistency: constant Improves with: rest Worsens with: movement (Movement, palpation and cough) - Related Data Home Medications Medication Instructions Recorded Confirmed Last Taken Aspirin 81 mg PO DAILY 04/04/19 11/04/20 Unknown Albuterol Sulfate [Albuterol 0.63% 0.63 mg IH TID PRN 07/26/19 11/04/20 Unknown NEBS] Insulin Glargine,Hum.rec.anlog 25 units SQ QHS 07/26/19 11/04/20 07/25/19 22:00 [Lantus Solostar] 25 Levothyroxine [Synthroid] 100 mcg PO QAM 07/26/19 11/04/20 Unknown metFORMIN [Glucophage] 500 mg PO BID 07/26/19 11/04/20 Unknown Previous Rx's Medication Instructions Recorded Last Taken Type Losartan [Cozaar] 50 mg PO QDAY #30 tablet 04/04/19 Unknown Rx Azithromycin [Zithromax TAB] 500 mg PO DAILY 2 Days #2 tablet 11/05/20 Unknown Rx Budesonide [Pulmicort Respules] 0.5 mg IH Q12HRT nebu 11/05/20 Unknown Rx Montelukast [Singulair] 10 mg PO QHS 30 Days #30 tablet 11/05/20 Unknown Rx Nicotine [Habitrol] 14 mg TD QDAY #60 patch 11/05/20 Unknown Rx Nitroglycerin [Nitrostat] 0.4 mg SL .Q5MIN PRN #30 tablet 11/05/20 Unknown Rx Pravastatin [Pravachol] 40 mg PO QHS tablet 11/05/20 Unknown Rx levoFLOXacin [Levaquin] 750 mg PO QDAY 5 Days #5 tablet 11/05/20 Unknown Rx predniSONE [Deltasone] 50 mg PO QDAY #5 tab 03/05/21 Unknown Rx ALBUTEROL NEB's [Proventil 0.083% 5 mg IH TID PRN #1 box 03/18/21 Unknown Rx NEBS] Albuterol Mdi (or & Nicu Only) 2 puff IH QID PRN #8.5 gram 03/18/21 Unknown Rx [ProAir HFA Inhaler] Benzonatate [Tessalon Perles] 100 mg PO Q8HR PRN 5 Days #15 cap 03/18/21 Unknown Rx Prednisone [predniSONE 10 mg 10 mg PO .TAPER #1 03/18/21 Unknown Rx (6-Day Pack, 21 Tabs)] Ipratropium [Atrovent NEB] 0.5 mg IH Q6HRT #1 box 05/12/21 Unknown Rx Prednisone [predniSONE 10 mg 10 mg PO .TAPER #1 tab.ds.pk 05/12/21 Unknown Rx (6-Day Pack, 21 Tabs)] Albuterol Sulfate [Proair 90 mcg IH Q4HR PRN #2 aer.pow.ba 06/05/21 Unknown Rx Respiclick] Benzonatate [Tessalon Perles] 100 mg PO Q8HR PRN #30 capsule 06/05/21 Unknown Rx DOXYCYCLINE Hyclate [Vibramycin] 100 mg PO Q12HR #10 capsule 06/05/21 Unknown Rx Ipratropium (Nf) [Atrovent] 2 puff IH Q6HR PRN #1 inha 06/05/21 Unknown Rx predniSONE [Deltasone] 40 mg PO QDAY #8 tab 06/05/21 Unknown Rx Allergies Allergy/AdvReac Type Severity Reaction Status Date / Time Penicillins Allergy Shortness Verified 06/05/21 05:26 of Breath ED Review of Systems ROS: Stated complaint: SOB/CHEST PAIN Other details as noted in HPI Constitutional: denies: fever Eyes: denies: eye discharge ENT: congestion Respiratory: cough, shortness of breath, SOB with exertion, SOB at rest, wheezing Cardiovascular: other (Chest wall pain) Gastrointestinal: denies: nausea, vomiting Neurological: weakness Psychiatric: anxiety ED Past Medical Hx - Past Medical History Hx Hypertension: Yes Hx Congestive Heart Failure: No Hx Diabetes: Yes Hx Asthma: Yes Hx COPD: Yes Hx HIV: No Additional medical history: IBS, sleep apnea, hypothyroid. - Social History Smoking Status: Current Every Day Smoker (We discussed tobacco cessation x3 minutes) - Medications Home Medications: Home Medications Medication Instructions Recorded Confirmed Last Taken Type Aspirin 81 mg PO DAILY 04/04/19 11/04/20 Unknown History Losartan [Cozaar] 50 mg PO QDAY #30 tablet 04/04/19 11/04/20 Unknown Rx Albuterol Sulfate [Albuterol 0.63% 0.63 mg IH TID PRN 07/26/19 11/04/20 Unknown History NEBS] Insulin Glargine,Hum.rec.anlog 25 units SQ QHS 07/26/19 11/04/20 07/25/19 22:00 History [Lantus Solostar] 25 Levothyroxine [Synthroid] 100 mcg PO QAM 07/26/19 11/04/20 Unknown History metFORMIN [Glucophage] 500 mg PO BID 07/26/19 11/04/20 Unknown History Azithromycin [Zithromax TAB] 500 mg PO DAILY 2 Days #2 tablet 11/05/20 Unknown Rx Budesonide [Pulmicort Respules] 0.5 mg IH Q12HRT nebu 11/05/20 Unknown Rx Montelukast [Singulair] 10 mg PO QHS 30 Days #30 tablet 11/05/20 Unknown Rx Nicotine [Habitrol] 14 mg TD QDAY #60 patch 11/05/20 Unknown Rx Nitroglycerin [Nitrostat] 0.4 mg SL .Q5MIN PRN #30 tablet 11/05/20 Unknown Rx Pravastatin [Pravachol] 40 mg PO QHS tablet 11/05/20 Unknown Rx levoFLOXacin [Levaquin] 750 mg PO QDAY 5 Days #5 tablet 11/05/20 Unknown Rx predniSONE [Deltasone] 50 mg PO QDAY #5 tab 03/05/21 Unknown Rx ALBUTEROL NEB's [Proventil 0.083% 5 mg IH TID PRN #1 box 03/18/21 Unknown Rx NEBS] Albuterol Mdi (or & Nicu Only) 2 puff IH QID PRN #8.5 gram 03/18/21 Unknown Rx [ProAir HFA Inhaler] Benzonatate [Tessalon Perles] 100 mg PO Q8HR PRN 5 Days #15 cap 03/18/21 Unknown Rx Prednisone [predniSONE 10 mg 10 mg PO .TAPER #1 03/18/21 Unknown Rx (6-Day Pack, 21 Tabs)] Ipratropium [Atrovent NEB] 0.5 mg IH Q6HRT #1 box 05/12/21 Unknown Rx Prednisone [predniSONE 10 mg 10 mg PO .TAPER #1 tab.ds.pk 05/12/21 Unknown Rx (6-Day Pack, 21 Tabs)] Albuterol Sulfate [Proair 90 mcg IH Q4HR PRN #2 aer.pow.ba 06/05/21 Unknown Rx Respiclick] Benzonatate [Tessalon Perles] 100 mg PO Q8HR PRN #30 capsule 06/05/21 Unknown Rx DOXYCYCLINE Hyclate [Vibramycin] 100 mg PO Q12HR #10 capsule 06/05/21 Unknown Rx Ipratropium (Nf) [Atrovent] 2 puff IH Q6HR PRN #1 inha 06/05/21 Unknown Rx predniSONE [Deltasone] 40 mg PO QDAY #8 tab 06/05/21 Unknown Rx ED Physical Exam - General Limitations: No Limitations General appearance: alert, anxious, in distress - Head Head exam: Present: atraumatic, normocephalic - Eye Eye exam: Present: normal appearance, EOMI. Absent: nystagmus - ENT ENT exam: Present: normal exam, normal orophraynx, mucous membranes moist, n ormal external ear exam - Neck Neck exam: Present: normal inspection, full ROM. Absent: tenderness, meningismus - Respiratory Respiratory exam: Present: respiratory distress, wheezes, rhonchi, chest wall tenderness. Absent: rales, stridor - Cardiovascular Cardiovascular Exam: Present: regular rate, normal rhythm, normal heart sounds. Absent: bradycardia, tachycardia, irregular rhythm, systolic murmur, diastolic murmur, rubs, gallop - GI/Abdominal GI/Abdominal exam: Present: soft. Absent: distended, tenderness, guarding, rebound, rigid, pulsatile mass - Extremities Exam Extremities exam: Present: normal inspection, full ROM, other (2+ pulses noted in the bilateral upper and lower extremities. There is no palpable cord. negative Homans sign. Muscular compartments are soft. The pelvis is stable.). Absent: calf tenderness - Back Exam Back exam: Present: normal inspection, full ROM. Absent: tenderness, CVA tenderness (R), CVA tenderness (L), paraspinal tenderness, vertebral tenderness - Neurological Exam Neurological exam: Present: alert, oriented X3, other (No facial droop. Tongue midline. Extraocular movements intact bilaterally. Facial sensation intact to light touch in V1, V2, V3 distribution bilaterally. 5 and a 5 strength in 4 extremities. Sensation intact to light touch in 4 extremities.). Absent: motor sensory deficit - Psychiatric Psychiatric exam: Present: anxious - Skin Skin exam: Present: warm, dry, intact, normal color. Absent: rash ED Course Vital Signs 06/05/21 06/05/21 06/05/21 05:26 08:07 10:23 Temperature 98.2 F 98.6 F Pulse Rate 88 78 Pulse Rate [ 76 Anterior Bilateral Throughout] Respiratory 20 22 Rate Respiratory 20 Rate [Anterior Bilateral Throughout] Blood Pressure 148/69 O2 Sat by Pulse 98 97 Oximetry - Reevaluation(s) Reevaluation #1: 06/05/21 07:53 Differential diagnosis, including the not limited to: Costochondritis, pneumonia, COPD exacerbation Assessment and plan: 61-year-old female, who denies DVT and pulmonary embolism risk factors, who is low risk by Wells criteria for pulmonary embolism, with a known history of COPD and superimposed costochondritis, presenting with a few days of cough, chest wall tightness, wheezing, shortness of breath, likely COPD exacerbation with costochondritis. 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 Treat with albuterol, Atrovent, steroids, Tylenol, and Tessalon Perles. Patient low risk for major adverse cardiac event as per heart score, symptoms going on for days, presuming troponin negative x1, acute myocardial infarction is ruled out. I discussed this plan of care with the patient. She is agreeable to the plan of care. Reassess. 06/05/21 10:39 Laboratory studies reviewed and appreciated. Awaiting administration of medications. Patient is still completing her breathing medication at this time hyperglycemia appreciated. Insulin ordered 06/05/21 11:33 Patient is reassessed. Her wheezing has resolved. She is able to ambulate without desaturation. She endorses readiness for discharge. All questions answered. Return precautions reviewed ED Medical Decision Making - Lab Data Result diagrams: 06/05/21 08:07 06/05/21 08:07 Vital Signs 06/05/21 06/05/21 05:26 08:07 Temperature 98.2 F Pulse Rate 88 Pulse Rate [ 76 Anterior Bilateral Throughout] Respiratory 20 Rate Respiratory 20 Rate [Anterior Bilateral Throughout] Blood Pressure 148/69 O2 Sat by Pulse 98 Oximetry Lab Results 06/05/21 Range/Units 08:07 WBC 10.2 (4.5-11.0) K/mm3 RBC 4.40 (3.65-5.03) M/mm3 Hgb 13.2 (10.1-14.3) gm/dl Hct 40.3 (30.3-42.9) % MCV 92 (79-97) fl MCH 30 (28-32) pg MCHC 33 (30-34) % RDW 14.5 (13.2-15.2) % Plt Count 262 (140-440) K/mm3 Lab Results 06/05/21 06/05/21 06/05/21 Range/Units 08:07 08:07 08:07 WBC 10.2 (4.5-11.0) K/mm3 RBC 4.40 (3.65-5.03) M/mm3 Hgb 13.2 (10.1-14.3) gm/dl Hct 40.3 (30.3-42.9) % MCV 92 (79-97) fl MCH 30 (28-32) pg MCHC 33 (30-34) % RDW 14.5 (13.2-15.2) % Plt Count 262 (140-440) K/mm3 PT 13.5 (12.2-14.9) Sec. INR 0.93 (0.87-1.13) Sodium 136 L (137-145) mmol/L Potassium 4.7 (3.6-5.0) mmol/L Chloride 103.3 (98-107) mmol/L Carbon Dioxide 21 L (22-30) mmol/L Anion Gap 16 mmol/L BUN 17 (7-17) mg/dL Creatinine 0.8 (0.6-1.2) mg/dL Estimated GFR > 60 ml/min BUN/Creatinine Ratio 21 % Glucose 340 H (65-100) mg/dL Calcium 10.2 (8.4-10.2) mg/dL Magnesium (1.7-2.3) mg/dL Troponin T < 0.010 (0.00-0.029) ng/mL NT-Pro-B Natriuret Pep (0-900) pg/mL 06/05/21 Range/Units 08:07 WBC (4.5-11.0) K/mm3 RBC (3.65-5.03) M/mm3 Hgb (10.1-14.3) gm/dl Hct (30.3-42.9) % MCV (79-97) fl MCH (28-32) pg MCHC (30-34) % RDW (13.2-15.2) % Plt Count (140-440) K/mm3 PT (12.2-14.9) Sec. INR (0.87-1.13) Sodium (137-145) mmol/L Potassium (3.6-5.0) mmol/L Chloride (98-107) mmol/L Carbon Dioxide (22-30) mmol/L Anion Gap mmol/L BUN (7-17) mg/dL Creatinine (0.6-1.2) mg/dL Estimated GFR ml/min BUN/Creatinine Ratio % Glucose (65-100) mg/dL Calcium (8.4-10.2) mg/dL Magnesium 1.80 (1.7-2.3) mg/dL Troponin T (0.00-0.029) ng/mL NT-Pro-B Natriuret Pep 24.35 (0-900) pg/mL - EKG Data -: EKG Interpreted by [place] EKG shows normal: sinus rhythm Rate: normal - EKG Data 06/05/21 07:52 The EKG is interpreted at 05: 34 Sinus rhythm, 68 bpm. Normal axis, normal intervals, left ventricular hypertrophy, normal P wave axis. Not a STEMI. Appears unchanged from prior EKG from November 05, 2020 - Radiology Data Radiology results: pending, report reviewed, image reviewed CHEST 1 VIEW 06/05/2021 8:18 AM INDICATION / CLINICAL INFORMATION: Chest tightness, cough, COPD. COMPARISON: 05/11/2021. FINDINGS: SUPPORT DEVICES: None. HEART / MEDIASTINUM: No significant abnormality. LUNGS / PLEURA: No significant pulmonary or pleural abnormality. No pneumothorax. ADDITIONAL FINDINGS: No significant additional findings. IMPRESSION: No acute abnormality. Signer Name: Tolu Ruffin MD Signed: 06/05/2021 7:33 AM Workstation Name: [email or web address] Critical Care Time: Yes Critical care time in (mins) excluding proc time.: 35 Critical care attestation.: If time is entered above; I have spent that time in minutes in the direct care of this critically ill patient, excluding procedure time. ED Disposition Clinical Impression: COPD with acute exacerbation, Chest wall pain, Hyperglycemia Disposition: 01 HOME / SELF CARE / HOMELESS Is pt being admited?: No Does the pt Need Aspirin: No Condition: Good Instructions: Chronic Obstructive Pulmonary Disease (ED), Chronic Obstructive Pulmonary Disease, [id number], Chest Wall Pain, [id number] Additional Instructions: Patient may take [id number] Tylenol as needed for chest wall pain. Please take the breathing medications, steroids as needed and directed. Make certain to adhere to a diabetic appropriate diet. Follow-up with your primary care doctor or hoop maker helper machine in the next 5 to 7 days for repeat checkup and evaluation Please return to the emergency room right away with new pain, worsened pain, migration of pain, projectile vomiting, change in mental status, confusion, inability tolerate liquid feeds, new, worsened or different symptoms not present on the initial emergency room evaluation Referrals: ARUNA ANDERSON MD [Staff Physician] - 3-5 Days KINGA VILLASENOR MD [Staff Physician] - 3-5 Days
--- NOTE | 2021-06-05 08:37 | XRay Report ---
CHEST 1 VIEW 06/05/2021 8:18 AM INDICATION / CLINICAL INFORMATION: Chest tightness, cough, COPD. COMPARISON: 05/11/2021. FINDINGS: SUPPORT DEVICES: None. HEART / MEDIASTINUM: No significant abnormality. LUNGS / PLEURA: No significant pulmonary or pleural abnormality. No pneumothorax. ADDITIONAL FINDINGS: No significant additional findings. IMPRESSION: No acute abnormality. Signer Name: Tolu Ruffin MD Signed: 06/05/2021 8:33 AM Workstation Name: [email or web address]
[2021-06-05 08:44] LABS: Hematocrit 40.3 % (30.3-42.9); Hemoglobin 13.2 gm/dl (10.1-14.3); Mean Corpuscular HGB Conc 33 % (30-34); Mean Corpuscular Volume 92 fl (79-97); Platelet Count 262 K/mm3 (140-440); Red Cell Distribution Width 14.5 % (13.2-15.2)
[2021-06-05 09:09] LABS: INR 0.93 (0.87-1.13)
[2021-06-05 09:13] LABS: BUN/Creatinine Ratio 21; Blood Urea Nitrogen 17 mg/dL (7-17); Calcium 10.2 mg/dL (8.4-10.2); Hemolysis Index 32
[2021-06-05 12:46] VITALS: BP 134/61
--- NOTE | 2021-06-09 13:47 | Electrocardiograph Report ---
[facility] Test Date: 2021-06-05 Test Time: 05:34:03 Pat Name: GODWIN BOOTHE Department: Room: Gender: F [employer] Adf Developer: CARLYN Marroquin : 1960 Requested By: RAMIN WILKINSON Order Number: [id number] Reading MD: Franchesca Byers Measurements Intervals [place] Rate: 68 P: 59 FL: 151 QRS: 44 QRSD: 85 T: 49 QT: 386 QTc: 410 Interpretive Statements Sinus rhythm Compared to ECG 11/03/2020 05:49:16 Sinus rate has slowed Electronically Signed On 06-09-2021 13:46:46 EDT by Franchesca Byers
== END ==
LOC: ED 05:24
DX: J44.1 Chronic obstructive pulmonary disease with (acute) exacerbation (principal); R07.9 Chest pain, unspecified; E11.65 Type 2 diabetes mellitus with hyperglycemia; I10 Essential (primary) hypertension; F17.200 Nicotine dependence, unspecified, uncomplicated; Z91.09 Other allergy status, other than to drugs and biological substances
CPT/HCPCS: 36415; 71045; 80048; 83735; 83880; 84484; 85027; 85610; 93005; 94640; 96374; 99284; J2930; 94644

== ENCOUNTER 2021-06-26 10:45 | Outpatient (CLI) | payer MEDICARE ==
--- NOTE | 2021-06-30 12:39 | Mammography Report ---
DIGITAL SCREENING MAMMOGRAM WITH CAD, 06/26/2021 CLINICAL INFORMATION / INDICATION: Routine screening mammography. TECHNIQUE: Digital bilateral 2D mammography was obtained in the craniocaudal and mediolateral obliqu e projections. This examination was interpreted with the benefit of Computer-Aided Detection analysis . COMPARISON: 05/26/2016 FINDINGS: Breast Density: There are scattered areas of fibroglandular density. No dominant mass, suspicious calcifications, or architectural distortion in either breast. No interval change. IMPRESSION: No mammographic evidence of malignancy. Follow up recommendation: Routine yearly screening mammogram. BI-RADS Category 1: NEGATIVE A "normal" or negative report should not discourage follow up or biopsy of a clinically significant f inding. A written summary of these findings will be mailed to the patient. The patient will be entered into a mammography reporting system which will generate a reminder letter for the patient's next appointmen t at the appropriate interval. The [employer] recommends yearly mammograms starting at age 40 and continuing as l latosha as a woman is in good health. Breast MRI is recommended for women with an approximate 20-25% or greater lifetime risk of breast cancer, including women with a strong family history of breast or ova john cancer or who have been treated for Hodgkin's disease. Signer Name: Toya Martin MD Signed: 06/30/2021 12:32 PM Workstation Name: [email or web address]
== END 2021-06-26 10:46 | disposition home or self-care (01) ==
LOC: MAMMO 10:45
PROVIDERS: ATTEND Internal Medicine
DX: Z12.31 Encounter for screening mammogram for malignant neoplasm of breast (principal)
CPT/HCPCS: 77067

== ENCOUNTER 2021-07-23 08:34 | Emergency (ER) | payer MEDICARE ==
[2021-07-23 09:30] LABS: Basophils # (Auto) 0.1 K/mm3 (0.0-0.1); Basophils % (Auto) 1.7 % (0.0-1.8); Eosinophils # (Auto) 0.2 K/mm3 (0.0-0.4); Eosinophils % (Auto) 2.4 % (0.0-4.3); Hematocrit 42.1 % (30.3-42.9); Hemoglobin 13.5 gm/dl (10.1-14.3); Lymphocytes # (Auto) 2.5 K/mm3 (1.2-5.4); Lymphocytes % (Auto) 33.3 % (13.4-35.0); Mean Corpuscular HGB Conc 32 % (30-34); Mean Corpuscular Volume 92 fl (79-97); Monocytes # (Auto) 0.4 K/mm3 (0.0-0.8); Monocytes % (Auto) 5.4 % (0.0-7.3); Platelet Count 296 K/mm3 (140-440); Red Cell Distribution Width 13.4 % (13.2-15.2)
[2021-07-23 09:47] LABS: Alanine Aminotransferase 15 units/L (7-56); BUN/Creatinine Ratio 21; Blood Urea Nitrogen 19 mg/dL (7-17); Calcium 10.5 mg/dL (8.4-10.2); Hemolysis Index 13
--- NOTE | 2021-07-23 09:49 | XRay Report ---
CHEST 2 VIEWS INDICATION / CLINICAL INFORMATION: Dyspnea. COMPARISON: 06/05/2021 FINDINGS: SUPPORT DEVICES: None. HEART / MEDIASTINUM: No significant abnormality. LUNGS / PLEURA: No significant pulmonary or pleural abnormality. No pneumothorax. ADDITIONAL FINDINGS: No significant additional findings. IMPRESSION: 1. No acute findings. Signer Name: Juan Gandhi MD Signed: 07/23/2021 9:45 AM Workstation Name: [email or web address]
[2021-07-23] MEDS ORDERED: ALBUTEROL 2.5 MG/3 ML NEBU IH ONE (10:27)
[2021-07-23] MEDS ORDERED: IPRATROPIUM 0.02% NEBU 2.5 ML IH ONE (10:27)
[2021-07-23] MEDS ORDERED: methylPREDNISolone Sod Succinate 125 MG/2 ML INJ IM ONE (10:28)
--- NOTE | 2021-07-23 10:29 | Emergency Department Report ---
Minor Respiratory - HPI Chief Complaint: Dyspnea/Respdistress Stated Complaint: SOB/TIGHT CHEST PAIN Time Seen by Provider: 07/23/21 10:12 Duration: 3 Days Pain Location: Chest Severity: mild Minor Respiratory: Yes Able to Tolerate Fluids, Yes Cough, Yes Chest Pain (With cough and wheezing), Yes Shortness of Breath (With cough and wheezing with cough and wheezing), No Rhinorrhea, No Sore Throat, No Ear Pain, No Sick Contacts, No Hemoptysis, No Fever Other History: Patient is a pleasant 61-year-old nontoxic [id number] female that comes to the ER with chest pain or shortness of breath associated with her wheezing. She has COPD. She is using her inhalers more at home and is almost out of them. She denies fevers or chills. She denies purulent sputum. ED Review of Systems ROS: Stated complaint: SOB/TIGHT CHEST PAIN Other details as noted in HPI Comment: All other systems reviewed and negative ED Past Medical Hx - Past Medical History Previous Medical History?: Yes Hx Hypertension: Yes Hx CVA: No Hx Heart Attack/AMI: No Hx Congestive Heart Failure: No Hx Diabetes: Yes Hx Deep Vein Thrombosis: No Hx Pulmonary Embolism: No Hx GERD: No Hx Liver Disease: No Hx Renal Disease: No Hx Asthma: Yes Hx COPD: Yes Hx HIV: No Additional medical history: IBS, sleep apnea, hypothyroid. - Surgical History Past Surgical History?: Yes - Family History Family history: no significant - Social History Smoking Status: Current Every Day Smoker (We discussed tobacco cessation x3 minutes) Substance Use Type: None - Medications Home Medications: Home Medications Medication Instructions Recorded Confirmed Last Taken Type Aspirin 81 mg PO DAILY 04/04/19 11/04/20 Unknown History Losartan [Cozaar] 50 mg PO QDAY #30 tablet 04/04/19 11/04/20 Unknown Rx Albuterol Sulfate [Albuterol 0.63% 0.63 mg IH TID PRN 07/26/19 11/04/20 Unknown History NEBS] Insulin Glargine,Hum.rec.anlog 25 units SQ QHS 07/26/19 11/04/20 07/25/19 22:00 History [Lantus Solostar] 25 Levothyroxine [Synthroid] 100 mcg PO QAM 07/26/19 11/04/20 Unknown History metFORMIN [Glucophage] 500 mg PO BID 07/26/19 11/04/20 Unknown History Azithromycin [Zithromax TAB] 500 mg PO DAILY 2 Days #2 tablet 11/05/20 Unknown Rx Budesonide [Pulmicort Respules] 0.5 mg IH Q12HRT nebu 11/05/20 Unknown Rx Montelukast [Singulair] 10 mg PO QHS 30 Days #30 tablet 11/05/20 Unknown Rx Pravastatin [Pravachol] 40 mg PO QHS tablet 11/05/20 Unknown Rx ALBUTEROL NEB's [Proventil 0.083% 5 mg IH TID PRN #1 box 03/18/21 Unknown Rx NEBS] DOXYCYCLINE Hyclate [Vibramycin] 100 mg PO Q12HR #10 capsule 06/05/21 Unknown Rx Ipratropium (Nf) [Atrovent] 2 puff IH Q6HR PRN #1 inha 06/05/21 Unknown Rx ALBUTEROL NEB's [Proventil 0.083% 2.5 mg IH TID PRN #1 box 07/23/21 Unknown Rx NEBS] ALBUTEROL NEB's [Proventil 0.083% 2.5 mg IH TID PRN #1 box 07/23/21 Unknown Rx NEBS] Albuterol Mdi (or & Nicu Only) 2 puff IH QID PRN #8.5 gram 07/23/21 Unknown Rx [ProAir HFA Inhaler] Albuterol Sulfate [Proair 90 mcg IH Q4HR PRN #2 aer.pow.ba 07/23/21 Unknown Rx Respiclick] Ipratropium [Atrovent NEB] 0.5 mg IH Q6HRT #1 box 07/23/21 Unknown Rx predniSONE [Deltasone] 40 mg PO QDAY #8 tab 07/23/21 Unknown Rx Minor Respiratory Exam - Exam General: Vital signs noted. No distress. Alert and acting appropriately. HEENT: Yes Moist Mucous Membranes, No Pharyngeal Erythema, No Pharyngeal Exudates, No Rhinorrhea, No Conjuctival Injection, No Frontal Tenderness, No Maxillary Tenderness Ear: Neither TM Bulge, Neither TM Erythema, Neither EAC Pain, Neither EAC Discharge Neck: Yes Supple, No Adenopathy Lungs: Yes Good Air Exchange, Yes Wheezes, No Ronchi, No Stridor, No Cough, No Labored Respirations, No Retractions, No Use of Accessory Muscles, No Other Abnormal Lung Sounds Heart: Yes Regular, No Murmur Abdomen: Yes Normal Bowel Sounds, No Tenderness, No Peritoneal Signs Skin: No Rash, No Edema Neurologic: Alert and oriented, no deficits. Musculoskeletal: Unremarkable. ED Course Vital Signs 07/23/21 08:43 Temperature 97.5 F L Pulse Rate 82 Respiratory 18 Rate Blood Pressure 143/88 [Right] O2 Sat by Pulse 99 Oximetry ED Medical Decision Making - Lab Data Result diagrams: 07/23/21 09:03 07/23/21 09:03 - EKG Data -: EKG Interpreted by [place] EKG shows normal: sinus rhythm Rate: normal - EKG Data When compared to previous EKG there are: no significant change Interpretation: no acute changes - Radiology Data Radiology results: report reviewed, image reviewed No acute process - Medical Decision Making EKG and chest x-ray noted Labs 07/23/21 07/23/21 09:03 09:03 WBC 7.4 RBC 4.60 Hgb 13.5 Hct 42.1 MCV 92 MCH 29 MCHC 32 RDW 13.4 Plt Count 296 Lymph % (Auto) 33.3 [place] % (Auto) 5.4 Eos % (Auto) 2.4 Baso % (Auto) 1.7 Lymph # (Auto) 2.5 [place] # (Auto) 0.4 Eos # (Auto) 0.2 Baso # (Auto) 0.1 Seg Neutrophils % 57.2 Seg Neutrophils # 4.2 Sodium 136 L Potassium 3.9 Chloride 100.1 Carbon Dioxide 24 Anion Gap 16 BUN 19 H Creatinine 0.9 Estimated GFR > 60 BUN/Creatinine Ratio 21 Glucose 225 H Calcium 10.5 H Total Bilirubin 0.20 AST 13 ALT 15 Alkaline Phosphatase 83 Troponin T < 0.010 Total Protein 7.4 Albumin 4.0 Albumin/Globulin Ratio 1.2 Labs noted Vital Signs 07/23/21 07/23/21 08:43 10:54 Temperature 97.5 F L Pulse Rate 82 Pulse Rate [ 78 Anterior Bilateral Throughout] Respiratory 18 Rate Respiratory 20 Rate [Anterior Bilateral Throughout] Blood Pressure 143/88 [Right] O2 Sat by Pulse 99 Oximetry No tachycardia, hypotension or fever. No hypoxia Patient given albuterol/Atrovent with Solu-Medrol IM in the ER. She reports feeling better. Wheezing did decrease with treatment Patient ambulatory, nontoxic [id number] on discharge exam. Patient being discharged home with discharge plan of care including diet, activity, medications and follow-up. She verbalizes understanding of plan of care - Differential Diagnosis Rule out URI Critical care attestation.: If time is entered above; I have spent that time in minutes in the direct care of this critically ill patient, excluding procedure time. ED Disposition Clinical Impression: COPD with acute exacerbation, Wheeze, Former smoker Disposition: HOME / SELF CARE / HOMELESS Is pt being admited?: No Does the pt Need Aspirin: No Condition: Good Instructions: Chronic Obstructive Pulmonary Disease, Komm-td-[id number], Chronic Obstructive Pulmonary Disease (ED) Additional Instructions: Medications as ordered today. Stay well-hydrated with water. Motrin or Tylenol for any pain Follow-up with PCP in 48 hours for reevaluation Prescriptions: Ipratropium [Atrovent NEB] 0.5 mg IH Q6HRT #1 box predniSONE [Deltasone] 40 mg PO QDAY #8 tab Albuterol Mdi (or & Nicu Only) [ProAir HFA Inhaler] 2 puff IH QID PRN #8.5 gram PRN Reason: Shortness Of Breath Albuterol Sulfate [Proair Respiclick] 90 mcg IH Q4HR PRN #2 aer.pow.ba PRN Reason: Wheezing ALBUTEROL NEB's [Proventil 0.083% NEBS] 2.5 mg IH TID PRN #1 box PRN Reason: Wheezing ALBUTEROL NEB's [Proventil 0.083% NEBS] 2.5 mg IH TID PRN #1 box PRN Reason: Wheezing Referrals: EMMIE RODRIGUEZ MD [Staff Physician] - 3-5 Days Time of Disposition: 11:03
[2021-07-23 11:52] VITALS: BP 126/86
== END 2021-07-23 11:49 | disposition home or self-care (01) ==
LOC: ED 08:34
DX: J44.1 Chronic obstructive pulmonary disease with (acute) exacerbation (principal); Z87.891 Personal history of nicotine dependence; I10 Essential (primary) hypertension; E11.9 Type 2 diabetes mellitus without complications; Z98.890 Other specified postprocedural states
CPT/HCPCS: 36415; 71046; 80053; 84484; 85025; 94640; 96372; 99284; J2930; 94644

== ENCOUNTER 2021-08-20 07:35 | Emergency (ER) | payer MEDICARE ==
--- NOTE | 2021-08-20 09:34 | XRay Report ---
CHEST 1 VIEW 08/20/2021 8:27 AM INDICATION / CLINICAL INFORMATION: cough, sob. COMPARISON: 07/23/2021 FINDINGS: SUPPORT DEVICES: None. HEART / MEDIASTINUM: No significant abnormality. LUNGS / PLEURA: No significant pulmonary or pleural abnormality. No pneumothorax. ADDITIONAL FINDINGS: No significant additional findings. IMPRESSION: 1. No acute findings. No change since 07/23/2021. Signer Name: Chris Smith Jr, MD Signed: 08/20/2021 9:29 AM Workstation Name: [id number]
[2021-08-20] MEDS ORDERED: methylPREDNISolone Sod Succinate 125 MG/2 ML INJ IM ONE (09:43)
[2021-08-20] MEDS ORDERED: IPRATROPIUM/ALBUTEROL SULFATE 3 ML AMPUL.NEB IH ONE (09:43)
[2021-08-20] MEDS ORDERED: BUDESONIDE 0.25 MG/2 ML NEBU IH NR (09:43)
--- NOTE | 2021-08-20 09:58 | Emergency Department Report ---
HPI - General Chief Complaint: Dyspnea/Respdistress PUI?: No Time Seen by Provider: 08/20/21 08:51 - HPI HPI: 61-year-old female with a history of COPD and multiple other medical comorbidities, brought in by private vehicle for evaluation of shortness of breath and wheezing. Patient states she has been wheezing and coughing over the past several days as well as experiencing chest tightness. She has been using her albuterol inhaler as well as nebulizer machine multiple times but feels as though her symptoms are not significantly improving. She states "I just felt very anxious and that I needed fresh air and I had to get here to get checked out." Patient reports feeling improved. No current pain or swelling in her calves. No recent prolonged travel history immobilization. No body aches no fevers or chills. Pain 0-10. ED Past Medical Hx - Past Medical History Hx Hypertension: Yes Hx CVA: No Hx Heart Attack/AMI: No Hx Congestive Heart Failure: No Hx Diabetes: Yes Hx Deep Vein Thrombosis: No Hx Pulmonary Embolism: No Hx GERD: No Hx Liver Disease: No Hx Renal Disease: No Hx Asthma: Yes Hx COPD: Yes Hx HIV: No Additional medical history: IBS, sleep apnea, hypothyroid. - Family History Family history: no significant - Social History Smoking Status: Former Smoker - Medications Home Medications: Home Medications Medication Instructions Recorded Confirmed Last Taken Type Aspirin 81 mg PO DAILY 04/04/19 11/04/20 Unknown History Losartan [Cozaar] 50 mg PO QDAY #30 tablet 04/04/19 11/04/20 Unknown Rx Albuterol Sulfate [Albuterol 0.63% 0.63 mg IH TID PRN 07/26/19 11/04/20 Unknown History NEBS] Insulin Glargine,Hum.rec.anlog 25 units SQ QHS 07/26/19 11/04/20 07/25/19 22:00 History [Lantus Solostar] 25 Levothyroxine [Synthroid] 100 mcg PO QAM 07/26/19 11/04/20 Unknown History metFORMIN [Glucophage] 500 mg PO BID 07/26/19 11/04/20 Unknown History Azithromycin [Zithromax TAB] 500 mg PO DAILY 2 Days #2 tablet 11/05/20 Unknown Rx Budesonide [Pulmicort Respules] 0.5 mg IH Q12HRT nebu 11/05/20 Unknown Rx Montelukast [Singulair] 10 mg PO QHS 30 Days #30 tablet 11/05/20 Unknown Rx Pravastatin [Pravachol] 40 mg PO QHS tablet 11/05/20 Unknown Rx ALBUTEROL NEB's [Proventil 0.083% 5 mg IH TID PRN #1 box 03/18/21 Unknown Rx NEBS] DOXYCYCLINE Hyclate [Vibramycin] 100 mg PO Q12HR #10 capsule 06/05/21 Unknown Rx Ipratropium (Nf) [Atrovent] 2 puff IH Q6HR PRN #1 inha 06/05/21 Unknown Rx ALBUTEROL NEB's [Proventil 0.083% 2.5 mg IH TID PRN #1 box 07/23/21 Unknown Rx NEBS] ALBUTEROL NEB's [Proventil 0.083% 2.5 mg IH TID PRN #1 box 07/23/21 Unknown Rx NEBS] Albuterol Mdi (or & Nicu Only) 2 puff IH QID PRN #8.5 gram 07/23/21 Unknown Rx [ProAir HFA Inhaler] Albuterol Sulfate [Proair 90 mcg IH Q4HR PRN #2 aer.pow.ba 07/23/21 Unknown Rx Respiclick] Ipratropium [Atrovent NEB] 0.5 mg IH Q6HRT #1 box 07/23/21 Unknown Rx predniSONE [Deltasone] 40 mg PO QDAY #8 tab 07/23/21 Unknown Rx ED Review of Systems ROS: Stated complaint: DIFFICULTY BREATHING Other details as noted in HPI Comment: All other systems reviewed and negative Constitutional: no symptoms reported Eyes: denies: eye pain, eye discharge ENT: denies: ear pain, throat pain, dental pain, hearing loss, epistaxis Respiratory: see HPI, cough, shortness of breath, wheezing. denies: orthopnea, SOB with exertion, SOB at rest, stridor Cardiovascular: denies: chest pain, palpitations, dyspnea on exertion, orthopnea, edema, syncope, paroxysmal nocturnal dyspnea Endocrine: denies: excessive sweating, flushing, intolerance to cold, intolerance to heat, increased hunger, increased thirst, increased urine, unexplained weight gain, unexplained weight loss Gastrointestinal: denies: abdominal pain, nausea, vomiting, diarrhea, constipation, hematemesis, melena, hematochezia Genitourinary: denies: urgency, dysuria, frequency, hematuria, discharge, abnormal menses, dyspareunia Musculoskeletal: denies: back pain, joint swelling, arthralgia, myalgia Skin: denies: rash, lesions, change in color, change in hair/nails Neurological: denies: headache, weakness, paresthesias, confusion Psychiatric: denies: anxiety, depression, auditory hallucinations, visual hallucinations, homicidal thoughts Hematological/Lymphatic: denies: easy bleeding, easy bruising Physical Exam - Physical Exam Vital Signs: Vital Signs 08/20/21 08/20/21 07:44 09:32 Temperature 98.4 F Pulse Rate 90 Respiratory 22 Rate Blood Pressure 158/79 [Right] O2 Sat by Pulse 98 98 Oximetry General: Gen: pt is well appearing, no acute distress HEENT: Normocephalic atraumatic pupils equally round and reactive to light extraocular muscles intact sclera anicteric Neck: Full range of motion, no midline spinal tenderness palpation, no JVD, no carotid bruits, no nuchal rigidity CVS: S1-S2 regular rate and rhythm with no gallops rubs or murmurs, chest wall nontender Pulmonary: Mild diffuse end expiratory wheezes on lung auscultation Abdomen: Soft nondistended nontender no guarding or rebound tenderness, no palpable deformities or step-offs, normal active bowel sounds, no hepatosplenomegaly, no pulsatile masses : Deferred Extremities: No cyanosis no clubbing no edema, intact distal peripheral pulses, Integumentary: Skin normal, no petechia no purpura no abscess no lacerations no evidence of trauma no evidence of infection Neuro: Patient is awake alert and oriented to person place time situation, mentating well, cranial nerves II through XII intact, no focal neurodeficits, sensation grossly tact Psych: Calm cooperative, mood affect normal ED Course Vital Signs 08/20/21 08/20/21 07:44 09:32 Temperature 98.4 F Pulse Rate 90 Respiratory 22 Rate Blood Pressure 158/79 [Right] O2 Sat by Pulse 98 98 Oximetry - Reevaluation(s) Reevaluation #1: 08/20/21 09:57 Patient appears comfortable and well. She is speaking in full sentences. Plan will be to give inhaler treatments as well as Solu-Medrol, obtain labs and chest x-ray. Patient will undergo reassessment. At this time she is hemodynamically stable and neurovascular tact ED Medical Decision Making - Lab Data Result diagrams: 08/20/21 09:22 08/20/21 09:22 - EKG Data EKG shows normal: sinus rhythm Rate: normal - EKG Data When compared to previous EKG there are: no significant change Interpretation: no acute changes - Radiology Data Radiology results: report reviewed - Medical Decision Making 61-year-old female with multiple medical comorbidities presents for evaluation of COPD exacerbation. Vital signs stable. Patient is extremely well on physical examination. She has faint mild end expiratory wheezes in lung [place]. She was given albuterol Atrovent nebulizer treatments as well as Solu-Medrol 125 mg IV push. She reports resolution of her symptoms. Reassessment of her respiratory status demonstrates that her remains unchanged. She has no evidence of active or impending airway compromise. She reports she feels better. Serum lab analysis reveals that the patient is hyperglycemic without concomitant elevated anion gap metabolic acidosis or other electrolyte derangement. Chest x-ray per reading radiologist is negative for any acute pathology. Hyperglycemia improved with regular insulin as well as normal saline. Patient is hemodynamically stable and neurovascular intact. She is staying stable for discharge to home and her symptoms have resolved. Patient will be sent home with prednisone. Given that chest x-ray is normal and she herself denies any productive cough or change in the severity of the cough, no antibiotics are indicated at this time. Patient deemed stable for discharge to home. Prior to discharge she was given strict verbal and written return precautions. Patient verbalized understanding and agreed the plan of care. Critical Care Time: No Critical care attestation.: If time is entered above; I have spent that time in minutes in the direct care of this critically ill patient, excluding procedure time. ED Disposition Clinical Impression: COPD exacerbation Disposition: 01 HOME / SELF CARE / HOMELESS Is pt being admited?: No Does the pt Need Aspirin: No Condition: Stable Instructions: Chronic Obstructive Pulmonary Disease (ED), Chronic Obstructive Pulmonary Disease, [id number], Chronic Obstructive Pulmonary Disease, Chronic Obstructive Pulmonary Disease Exacerbation, [id number] Additional Instructions: You are being placed on prednisone, 60 mg by mouth daily for the next 5 days. Please be sure to start this on August 21, 2021. You have already received steroids here in the emergency department and no more indicated for you to be given today. Continue using your albuterol nebulizer treatments as well as your albuterol inhaler, as needed. Please follow-up with your primary care doctor within 1-2 business days for immediate reassessment. This is very important. Observe your symptoms very carefully. Return to the nearest emergency department soon as possible if you develop severe or worsening shortness of breath, difficulty breathing,
[2021-08-20 10:01] LABS: Basophils # (Auto) 0.1 K/mm3 (0.0-0.1); Basophils % (Auto) 1.2 % (0.0-1.8); Eosinophils # (Auto) 0.1 K/mm3 (0.0-0.4); Eosinophils % (Auto) 2.6 % (0.0-4.3); Hematocrit 37.4 % (30.3-42.9); Hemoglobin 12.4 gm/dl (10.1-14.3); Lymphocytes # (Auto) 1.5 K/mm3 (1.2-5.4); Lymphocytes % (Auto) 30.5 % (13.4-35.0); Mean Corpuscular HGB Conc 33 % (30-34); Mean Corpuscular Volume 90 fl (79-97); Monocytes # (Auto) 0.5 K/mm3 (0.0-0.8); Monocytes % (Auto) 10.1 % (0.0-7.3); Platelet Count 325 K/mm3 (140-440); Red Blood Count 4.15 M/mm3 (3.65-5.03); Red Cell Distribution Width 13.2 % (13.2-15.2)
[2021-08-20 10:16] LABS: BUN/Creatinine Ratio 19; Blood Urea Nitrogen 17 mg/dL (7-17); Calcium 10.9 mg/dL (8.4-10.2); Hemolysis Index 3
[2021-08-20] MEDS ORDERED: INSULIN REGULAR, HUMAN 100 UNITS/1 ML IV ONE (11:44)
[2021-08-20] MEDS ORDERED: SODIUM CHLORIDE 0.9% 1000 ML 1,000 ML IV ONE (11:45)
[2021-08-20 14:49] VITALS: BP 147/69
--- NOTE | 2021-08-22 11:08 | Electrocardiograph Report ---
[facility] Test Date: 2021-08-20 Test Time: 09:04:18 Pat Name: GODWIN BOOTHE Department: Room: Gender: F [employer]: [birth year] : 1960 Requested By: NEERAJ FERRIS Order Number: [id number] Reading MD: Isauro Ortiz Measurements Intervals [place] Rate: 69 P: 65 NC: 157 QRS: 43 QRSD: 74 T: 50 QT: 362 QTc: 389 Interpretive Statements Sinus rhythm Compared to ECG 06/05/2021 05:34:03 No significant changes Electronically Signed On 08-22-2021 11:08:40 EDT by Isauro Ortiz
== END 2021-08-20 14:49 | disposition home or self-care (01) ==
LOC: ED 07:35
DX: J45.901 Unspecified asthma with (acute) exacerbation (principal); I10 Essential (primary) hypertension; E11.9 Type 2 diabetes mellitus without complications; G47.30 Sleep apnea, unspecified; K58.9 Irritable bowel syndrome, unspecified; E03.9 Hypothyroidism, unspecified; Z87.891 Personal history of nicotine dependence
CPT/HCPCS: 36415; 71045; 80048; 83880; 85025; 93005; 94640; 96361; 96372; 96374; 99284; J2930; J7030; 94644; Q9967; J1815